=== PATIENT | male | born 1960 | race Caucasian/White ===

== ENCOUNTER 2017-01-25 12:12 | Inpatient (IN) ==
[2017-01-25] MEDS ORDERED: Ondansetron 4 MG/2 ML VIAL IVP PRN (16:45)
[2017-01-25] MEDS ORDERED: Naloxone 0.4 MG/ML INJ IVP PRN (16:49)
[2017-01-25] MEDS ORDERED: *HR* HYDROmorphone (PF) 1 MG/ML SYRINGE IVP PRN (16:51)
--- NOTE | 2017-01-25 17:39 | Internal Med History&Physical ---
Date of Encounter: 01/25/17 Time of Encounter: 17:22 Assessment and Plan (1) Displaced fracture of right ulna Current visit: Yes Status: Acute 1 sustained fall from ladder. Right wrist reduced in outlying facilty ER and splinted. Orthopedics has been consulted-Dr. Cardenas 2 continue to elevate right arm 3 continue with Dilaudid for pain meds 4 Zofran for nausea Qualifiers: Encounter type: initial encounter Ulna location: styloid process Fracture type: closed Qualified Code(s): S52.611A - Displaced fracture of right ulna styloid process, initial encounter for closed fracture (2) Fracture of right distal radius Current visit: Yes Status: Acute 1 patient sustained a fall from ladder sustaining wrist trauma x-ray revealed comminuted fracture involving the distal radius. Arm is splinted and orthopedics has been consultation 2 continue with pain medication as well as Zofran 3 continue to elevate arm Qualifiers: Encounter type: initial encounter Fracture type: closed Fracture morphology: unspecified fracture morphology Qualified Code(s): S52.501A - Unspecified fracture of the lower end of right radius, initial encounter for closed fracture (3) Fracture of femoral neck, right, closed Current visit: Yes Status: Acute 1 patient sustained a fall from a ladder imaging revealed mildly comminuted fracture base of the femoral neck. Orthopedics has been consulted-Dr. Haney Patient is to be nothing by mouth after midnight for surgery in the a.m. Continue with Dilaudid for pain Zofran for nausea PT and OT consult Qualifiers: Encounter type: initial encounter Qualified Code(s): S72.001A - Fracture of unspecified part of neck of right femur, initial encounter for closed fracture (4) HTN (hypertension) Current visit: No Status: Chronic 1 presently is controlled. - will bring in meds list and once confirm we will resume home medications 2 low sodium diet Qualifiers: Hypertension type: essential hypertension Qualified Code(s): I10 - Essential (primary) hypertension (5) GERD (gastroesophageal reflux disease) Current visit: Yes Status: Chronic We will continue with Protonix Qualifiers: Esophagitis presence: without esophagitis Qualified Code(s): K21.9 - Gastro -esophageal reflux disease without esophagitis (6) DVT prophylaxis Current visit: Yes Status: Acute SCDs-Lovenox (7) CKD (chronic kidney disease) Current visit: Yes Status: Acute 1 unsure baseline creatinine presently is 1.13. We will continue to monitor 2 we will avoid nephrotoxins 3 monitor intake and output 4 we will give IV fluids overnight Qualifiers: Chronic kidney disease stage: unspecified stage Qualified Code(s): N18.9 - Chronic kidney disease, unspecified Internal Medicine - H&P: HPI Chief complaint: R arm /hip pain Admitted From: Hospital to Hospital Transfer Plans for Post Hospital Care: Home History of present illness: Mr. Voss is a 56 year old male with past history of hypertension GERD CK D hyperlipidemia R CEA. According to the patient he was at work today he was up a ladder approximately 7 rungs and began to fall. He attempted to break his fall with his arm and landed onto his right arm and right hip. He denies striking his head or lose any loss of consciousness. He denies any back or neck pain. He presented to an outlying facility [facility]. x-rays did reveal a comminuted fracture involving distal radius and displaced fracture of the ulnar styloid process. As well as mildly comminuted fracture of the right femoral neck and the greater trochanter. Right wrist was reduced in the emergency room. ER physician did speak with Dr. Haney who will see patient on consult. Patient has been transferred to [facility] for further treatment and managment . Upon arrival patient is hemodynamically stable. Dr. Haney did see patient at bedside. He will have surgery in AM NPO after midnight. Asad patient's pain is controlled. He is nauseated and is vomiting. Right arm is splinted and elevated Refills are brisk history. Her warm. Right lower extremity . Warm brisk capillary refill, palpable pulse. patient has no cardiac hx - he did have a recent stess test in Mar 2016 he achieved 88% of his age predicted heart rate and ran for approx 11 min without CP or ischemic changes on EKG. However his present his current EKG shows deep T wave inversion in precordial leads. This is more evident than previous EKG. He denies any CP at this time. I reviewed EKG with Dr Busch- with the changes in the EKG and the patient's hx of carotid artery disease - we will consult cardiology for preoperative clearance. We will obtain echo and intiate ASA and statin Past Med Surg Social Fam HX - Past Medical History Medical history: hypertension Psychiatric history: no psych history - Past Surgical History Surgical History: carotid endarterectomy - Social History Smoking Status: Former smoker Smokeless Tobacco Status: No Alcohol use: occasionally Drug use: marijuana - Family History Father Living Status: Age at : 67 Cause of : [place] Mother Living Status: Still Living Hx Family Cardiac Disorders: Yes ( HTN heart disease ) Internal Medicine - H&P: Meds Unable To Obtain [Unable to Obtain] 01/25/17 [History] 3 Allergy/AdvReac Type Severity Reaction Status Date / Time morphine Allergy Unknown Gastrointestinal Verified 01/25/17 16:15 Upset All Systems PM: A 10-system review of systems was performed and is negative for pertinent findings except as documented above in the HPI. - Constitutional Constitutional: no chills, no fever(s), no night sweats - EENT Eyes: no change in vision, no discharge, no pain, no photophobia Ears: no ear discharge, no ear pain, no tinnitus Nose, mouth and throat: no dysphagia, no nasal discharge, no neck pain, no sore throat - Cardiovascular Cardiovascular ROS IM: no chest pain, no diaphoresis, no dyspnea, no lightheadedness, no palpitations, no syncope - Respiratory Respiratory: no cough, no dyspnea, no wheezing, no excessive phlegm production - Gastrointestinal Gastrointestinal: no abdominal pain, no diarrhea, no hematemesis, no hematochezia, no melena, no nausea, no vomiting - Musculoskeletal Musculoskeletal ROS IM: no numbness, no tingling - Integumentary Integumentary IM: no rash, no unusual bruising - Neurological Neurological ROS: no confusion, no convulsions, no focal weakness, no numbness, no tingling, no tremor(s) - Hematologic/Lymphatic Hematologic/Lymphatic: no easy bruising - Constitutional Vitals: Temp Pulse Resp BP Pulse Ox 97.7 F 53 16 134/78 97 01/25/17 15:59 01/25/17 15:59 01/25/17 15:59 01/25/17 15:59 01/25/17 15:59 General appearance: Present: A&O X 3 - Head Head exam: Present: atraumatic, normocephalic - Eye Eye exam: Present: PERRL, conjuntiva pink, sclera anicteric Pupils: Present: PERRL - Neck Neck exam general surgery: Present: supple, trachea midline. Absent: lymphadenopathy - Respiratory Respiratory exam: Present: CTAB. Absent: accessory muscle use, rales, rhonchi, wheezes - Cardiovascular Cardiovascular exam: Present: RRR, +S1, +S2. Absent: diastolic murmur, gallop, rubs, systolic murmur - GI/Abdominal GI/Abdominal exam: Present: normal bowel sounds, soft, no peritoneal signs. Absent: distended, tenderness - Extremities Exam Extremities exam: Present: warm, radial pulses palpable and symmetrical. Absent : calf tenderness, cyanotic, pedal edema - Neurological Exam Neurological exam: Present: CN II-XII intact, oriented X3, no focal deficits. Absent: pronater drift, facial droop, speech deficit - Skin Skin exam: Present: dry, intact
--- NOTE | 2017-01-25 17:40 | Orthopedic Consult Note ---
Date of Encounter: 01/25/17 Time of Encounter: 17:36 Assessment and Plan (1) Fracture of femoral neck, right, closed Current Visit: Yes Status: Acute I did discuss the diagnosis in detail with the patient. He has a right significantly displaced distal radius fracture. He also has a right basicervical femoral neck fracture. Treatment options were discussed and the recommendation was for reduction and internal fixation of both fractures. Regarding the wrist to goal is to realign and restore function to the right upper extremity. The goal of the hip fracture is to realign and stabilize the hip. The risks discussed included but were not limited to stiffness, bleeding, infection, blood clots, damage to neurovascular structures, tendons, ligaments, and bone. Also discussed was the risk of continued symptoms and possible need for further procedures. I did discuss the anesthesia risks including stroke, heart attack, and . We discussed the reasonable, foreseeable postoperative course with the patient. He did wish to proceed and consent will be obtained. Qualifiers: Encounter type: initial encounter Qualified Code(s): S72.001A - Fracture of unspecified part of neck of right femur, initial encounter for closed fracture History of Present Illness HPI: Mr. 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 He denies any significant medical comorbidity though he says he has had a carotid endarterectomy in the past. He was transferred to our [facility] after a fall from a foot ladder landing on his right upper extremity. At the transferring [facility] he was found to have a comminuted distal radius fracture and ulnar styloid avulsion as well as a right basicervical femoral neck fracture. The patient complains of isolated pain to these 2 regions. He denies any headache, neck pain, chest pain, abdominal pain, left upper extremity pain, and left lower extremity pain. This pain is well controlled with rest and a splint to the right forearm. No other associated signs or symptoms or modifying factors. Past Med Surg Social Fam HX - Past Medical History Medical history: hypertension Psychiatric history: no psych history - Past Surgical History Surgical History: carotid endarterectomy - Social History Smoking Status: Former smoker Smokeless Tobacco Status: No Alcohol use: occasionally Drug use: marijuana - Family History Father Living Status: Age at : 67 Cause of : [place] Mother Living Status: Still Living Hx Family Cardiac Disorders: Yes ( HTN heart disease ) Medications and Allergies 3 Allergy/AdvReac Type Severity Reaction Status Date / Time morphine Allergy Unknown Gastrointestinal Verified 01/25/17 16:15 Upset All Systems Reviewed: Constitutional and musculoskeletal systems were reviewed and are negative unless otherwise stated in history of present illness. Physical Exam - Constitutional Vitals: Temp Pulse Resp BP Pulse Ox 97.7 F 53 16 134/78 97 01/25/17 15:59 01/25/17 15:59 01/25/17 15:59 01/25/17 15:59 01/25/17 15:59 Constitutional -Vitals reviewed -The patient is well developed and well nourished. -Mood is pleasant. -The patient is well groomed. Psychiatric -The patient is fully alert and oriented x 3. Respiratory: -Respiratory effort normal Abdomen: -Soft abdomen -Non tender -Non distended: Left upper extremity: -No deformities. The overlying skin is intact. No obvious signs of acute trauma. -No tenderness to palpation throughout. -No significant pain with passive motion of the shoulder, elbow, wrist, and fingers within the limits of the bed. -Able to make an "OK" sign, cross the index and long fingers, and extend the thumb. -Sensation grossly intact to light touch throughout the median, radial, and ulnar distributions. -Radial pulse is present; Fingers have good capillary refill. Right upper extremity: -Splint is taken down and the skin and the soft tissue envelope are evaluated. -Minimal swelling to the forearm with radial deviation of the hand. Moderate hand swelling. No tenting of the skin ulnarly -No skin lesions or open fractures -Compartments are soft and compressible -Diffuse tenderness about the wrist. No tenderness proximally about the elbow or shoulder. -I can gently range the shoulder and elbow without discomfort. I did not range the wrist due to his known injury. -He can grossly flex and extend the digits with limitation due to pain and swelling. -The fingertips are all grossly sensate and well-perfused, and the radial artery pulse is 2+. Left lower extremity: -No deformities. The overlying skin is intact. No obvious signs of acute trauma. -No tenderness to palpation throughout. -No pain with passive motion of the hip, knee, ankle, and toes within the limits of the bed. -No pain with axial loading of the thigh. -Able to dorsiflex and plantarflex the ankle and toes. -Sensation is grossly intact to light touch throughout the sural, saphenous, superficial peroneal, and deep peroneal distributions. -Toes have good capillary refill. Right lower extremity: -The extremity is shortened and externally rotated. The overlying skin is intact. -There is tenderness in the groin region as well as the proximal lateral thigh. -I did not range the hip due to the known fracture. -No tenderness along the distal thigh, leg, ankle, foot, or toes. -Able to dorsiflex and plantarflex the ankle and toes. -Sensation is grossly intact to light touch throughout the sural, saphenous, superficial peroneal, and deep peroneal distributions. -Toes have good capillary refill. Diagnostic Imaging: I did personally review and interpret x-rays of the right hip as well as wrist which demonstrate a right basicervical femoral neck fracture and a significantly comminuted and shortened right radius fracture with ulnar styloid avulsion. Results - Labs Labs: All other labs normal. Consult Discharge Plan - Plan Referrals: Dalton Cheng CNP [Primary Care Provider] -
[2017-01-25] MEDS: 0.9 % Sodium Chloride 1,000 ML IVC SCH (17:51)
[2017-01-25] MEDS: Pantoprazole 40 MG VIAL IVP SCH (17:51)
[2017-01-25] MEDS: Acetaminophen 325 MG TABLET PO PRN (20:34)
[2017-01-25] MEDS ORDERED: Aspirin 325 MG TABLET PO ONE (23:29)
--- NOTE | 2017-01-25 23:31 | Event Note ---
Date of Encounter: 01/25/17 Time of Encounter: 23:26 Patient seen and examined with nurse practitioner. Patients with history of carotid artery disease status post carotid endarterectomy but no known history of coronary heart disease presents today after a mechanical fall from a ladder sustaining a hip fracture. Patients is due to have surgery tomorrow. Although patient had recent stress test in March 2016 where he achieved 88% of his age predicted heartrate and ran for approximately 11 minutes without limiting chest pain or ischemic EKG changes, however his current EKG shows deep T wave inversions in precordial leads. This is more pronounced than his prior EKG. Patient has good functional capacity denies any exertional chest pain. However because of these EKG changes and the history of carotid artery disease which is a coronary artery disease equivalent, I would ask cardiology service for preoperative clearance. Will check an echocardiogram. Start aspirin. Heartrate is in the 50s no room for beta blockers.
[2017-01-26 00:42] LABS: Basophils % 0.2 %; Eosinophils % 0.1 %; Hematocrit 39.6 % (37.5-50.1); Hemoglobin 13.9 g/dL (12.9-16.9); Immature Granulocytes % 0.4 % (0-4); Lymphocytes # 1.1 K/mcL (0.6-4.6); Lymphocytes % 7.9 %; Mean Corpuscular HGB Conc 35.1 g/dL (31.6-35.5); Mean Corpuscular Hemoglobin 31.9 pg (28.0-33.3); Mean Corpuscular Volume 90.8 fL (83.0-100.0); Mean Platelet Volume 11.3 fL (9.4-12.4); Monocytes # 1.3 K/mcL (0.0-1.3); Monocytes % 8.9 %; Neutrophils # 11.5 K/mcL (1.6-8.9); Platelet Count 228 K/mcL (140-400); Red Blood Count 4.36 M/mcL (4.19-5.50); Red Cell Distribution Width 13.6 % (11.5-14.5); Segmented Neutrophils % 82.5 %
[2017-01-26 00:55] LABS: BUN/Creatinine Ratio 10 (6-26); Blood Urea Nitrogen 9 mg/dL (8-26); Calcium 9.2 mg/dL (8.6-10.8); Carbon Dioxide 28 mEq/L (19-29); Chloride 103 mEq/L (98-109); Glucose 120 mg/dL (70-99); Magnesium 2.3 mg/dL (1.6-2.6); Osmolality,Calculated 290 (280-300); Sodium 140 mEq/L (136-145); eGFR For African Americans > 60 (> 60); eGFR For Non-African Americans > 60 (> 60)
[2017-01-26 00:57] LABS: Chol/HDL Ratio 4.3 (0-4.9)
[2017-01-26] MEDS: Acetaminophen 325 MG TABLET PO PRN ×3 (04:27→17:13)
[2017-01-26] MEDS: 0.9 % Sodium Chloride 1,000 ML IVC SCH (06:30)
--- NOTE | 2017-01-26 07:47 | Orthopedics Progress Note ---
Date of Encounter: 01/26/17 Time of Encounter: 07:44 - Assessment and Plan (1) Fracture of femoral neck, right, closed Current Visit: Yes Status: Acute Qualifiers: Encounter type: initial encounter Qualified Code(s): S72.001A - Fracture of unspecified part of neck of right femur, initial encounter for closed fracture Subjective Interval history: S: The patient is resting comfortably. Pain is well-controlled to the right hip and the right wrist. O: Afebrile and vital signs are stable. Right wrist in splint. Digits distal to the splint are freely mobile, sensate, and well perfused. Right lower extremity is shortened and externally rotated. Toes are freely mobile, sensory, and well-perfused A: Right comminuted distal radius fracture and right hip fracture P: The recommendation is for open reduction and internal fixation of the wrist and reduction and fixation of the right hip. Notes reviewed from yesterday and he will require cardiac clearance. Echo was placed STAT Nothing by mouth Plan for surgery later today. Objective Vital signs: Vital Signs Temp Pulse Resp BP Pulse Ox 01/26/17 06:43 98.7 F 78 16 136/84 95 01/26/17 04:11 98.5 F 71 16 132/83 94 01/25/17 23:19 98.1 F 70 17 129/86 96 01/25/17 21:12 98.3 F 58 15 119/81 98 01/25/17 15:59 97.7 F 53 16 134/78 97 01/25/17 15:39 97.7 F 53 16 134/78 97 Intake and Output 01/25/17 01/25/17 01/26/17 15:59 23:59 07:59 Intake Total 900 / 900 1000 / 1000 Output Total 0 / 0 1200 / 1200 Balance 900 / 900 -200 / -200 Intake: IV Fluids 1000 / 1000 0.9 % Sodium Chloride 1,000 ML 1000 / 1000 @ 100 mls/hr IVC .Q10H [facility] Rx#: [id number] Oral 900 / 900 Output: Urine 0 / 0 1200 / 1200 Other: Weight 102 kg - Labs CBC & BMP: 01/26/17 00:23 01/26/17 00:23 Labs: Abnormal lab results WBC 14.0 K/mcL (4.3-11.1) H 01/26/17 00:23 Neutrophils # 11.5 K/mcL (1.6-8.9) H 01/26/17 00:23 Potassium 3.0 mEq/L (3.5-4.5) L 01/26/17 00:23 Glucose 120 mg/dL (70-99) H 01/26/17 00:23 LDL Cholesterol, Calc 122 mg/dL (0-99) H 01/26/17 00:23 - VTE Documentation of Mechanical Device: Intermittent pneumatic compression device Consult Discharge Plan - Plan Referrals: Dalton Cheng COMPUTER TECH [Primary Care Provider] -
[2017-01-26] MEDS: Pantoprazole 40 MG VIAL IVP SCH (07:48)
--- NOTE | 2017-01-26 10:06 | Cardiology Consult Note ---
Date of Encounter: 01/26/17 Time of Encounter: 10:03 Assessment and Plan (1) Pre-operative cardiovascular examination Current Visit: Yes Status: Acute Pre-operative cardiac risk stratification for open reduction and internal fixation of the wrist and reduction and fixation of the right hip. Injuries sustained s/p mechanical fall. Prior to injury, pt reports being able to achieve 4 METS without any cardiac symptoms (dyspnea or chest pain). Abnormal EKG--inferolateral T wave inversions, but EKG is unchanged from when he had his stress test in March 2016. Risk factors for CAD include HTN and family hx, carotid disease s/p R CEA 4 years ago. Nuclear exercise stress test 03/2016 pt demonstrated excellent exercise capacity. Gated EF 69%. Perfusion imaging negative for ischemia or infarct. No murmur noted on exam. No echo warranted since EF preserved on stress in March. Given negative ischemic evaluation in the past year and pt being able to achieve 4 METS without symptoms, pt is low risk from cardiac perspective for planned orthopedic surgery. No further cardiac testing warranted. Cardiology signing off. Reconsult PRN. (2) Hypokalemia Current Visit: Yes Status: Acute K 3.0 Will replace. (3) HTN (hypertension) Current Visit: Yes Status: Chronic Controlled currently. Recommend resuming home antihypertensive. Qualifiers: Hypertension type: essential hypertension Qualified Code(s): I10 - Essential (primary) hypertension Discussion w patient/family: The assessment and plan as outlined above was discussed with the patient and/or family members who expressed understanding and agreement. All questions were answered. Thank you for involving us in the care of your patient. Please call with any questions. I will discuss all the above with Dr. Couch and make changes as necessary. History of Present Illness Consult date: 01/26/17 Requesting physician: Gilberto Cardenas Consult reason: Preop cardiac risk stratification Chief complaint: right wrist and hip pain History of present illness: Mr. Voss is a 56 year old male with past history of HTN, GERD, CKD, HTN, carotid disease s/p right CEA in 2012. Pt presented in transfer after falling off a ladder at work. He attempted break his fall with his arm and landed onto his right arm and right hip. He denies striking his head or lose any loss of consciousness. He denies any back or neck pain. He initially presented to [facility][1], found to have distal radius fx and displaced fracture of the ulnar styloid process, fracture of the right femoral neck and the greater trochanter. He was transferred to [facility] for further management. Planned surgery today for open reduction and internal fixation of the wrist and reduction and fixation of the right hip. Pt denies any chest pain or dyspnea at rest or exertion. He has no prior cardiac hx. He had an exercise nuclear stress test 2016--perfusion imaging negative for ischemia or infarct. Gated EF 69%. Exercise capacity excellent. It was noted he had baseline EKG abnormalities on stress, which he also has on current EKG. Past Med Surg Social Fam HX - Past Medical History Medical history: hyperlipidemia, hypertension Psychiatric history: no psych history - Past Surgical History Surgical History: carotid endarterectomy - Social History Smoking Status: Former smoker Smokeless Tobacco Status: No Alcohol use: occasionally Drug use: marijuana - Family History Father Living Status: Age at : 67 Cause of : [place] Mother Living Status: Still Living Hx Family Cardiac Disorders: Yes ( HTN heart disease ) Medications and Allergies Aspirin [Lo-Dose Aspirin EC] 81 mg PO DAILY 01/26/17 [History] Enalapril/Hydrochlorothiazide [Vaseretic 10-25 mg Tablet] 1 tab PO DAILY [History] 3 Allergy/AdvReac Type Severity Reaction Status Date / Time morphine Allergy Unknown Gastrointestinal Verified 01/25/17 16:15 Upset All Systems Review: A 10-system review of systems was performed and is negative for pertinent findings except as documented above in the HPI. - Musculoskeletal Musculoskeletal: other (right hip and wrist pain) Physical Examination Vital Signs, Last 4 Hours Temp Pulse Resp BP Pulse Ox 01/26/17 06:43 98.7 F 78 16 136/84 95 Vital Signs Temp Pulse Resp BP Pulse Ox 01/26/17 06:43 98.7 F 78 16 136/84 95 01/26/17 04:11 98.5 F 71 16 132/83 94 01/25/17 23:19 98.1 F 70 17 129/86 96 01/25/17 21:12 98.3 F 58 15 119/81 98 01/25/17 15:59 97.7 F 53 16 134/78 97 01/25/17 15:39 97.7 F 53 16 134/78 97 Intake and Output 1101/26/17 01/26/17 23:59 07:59 15:59 Intake Total 900 / 900 1000 / 1000 Output Total 0 / 0 1200 / 1200 Balance 900 / 900 -200 / -200 Intake: IV Fluids 1000 / 1000 0.9 % Sodium Chloride 1,000 ML 1000 / 1000 @ 100 mls/hr IVC .Q10H [facility] Rx#: [id number] Oral 900 / 900 Output: Urine 0 / 0 1200 / 1200 Other: Weight 102 kg General: Conversant, No Apparent Distress HEENT: Atraumatic, Normocephaly, Mucus Membranes Moist Neck: No JVD, Normal carotid pulses Cardiac: Reg Rate and Rhythm, Normal S1 and S2, No Murmur Lungs: Normal Breath Sounds, No Wheeze, Rales, Rhonchi Neuro: Alert and responsive, No focal deficits noted Abdomen: Soft, Non-Tender Skin: No rashes noted on visualized skin Musculoskeletal: No Chest Wall Tenderness Extremities: No Clubbing, No Cyanosis, No Edema, Normal Pulses Results 01/26/17 00:23 01/26/17 00:23 Lab Results 01/26/17 01/26/17 00:23 00:23 WBC 14.0 H Hgb 13.9 Hct 39.6 Plt Count 228 Sodium 140 Potassium 3.0 L Chloride 103 Carbon Dioxide 28 BUN 9 Creatinine 0.93 Glucose 120 H Calcium 9.2 Magnesium 2.3 Short CBC 01/26/17 Range/Units 00:23 WBC 14.0 H (4.3-11.1) K/mcL Hgb 13.9 (12.9-16.9) g/dL Hct 39.6 (37.5-50.1) % Plt Count 228 (140-400) K/mcL Neutrophils # 11.5 H (1.6-8.9) K/mcL BMP 01/26/17 Range/Units 00:23 Sodium 140 (136-145) mEq/L Potassium 3.0 L (3.5-4.5) mEq/L Chloride 103 (98-109) mEq/L Carbon Dioxide 28 (19-29) mEq/L BUN 9 (8-26) mg/dL Creatinine 0.93 (0.72-1.25) mg/dL Glucose 120 H (70-99) mg/dL Calcium 9.2 (8.6-10.8) mg/dL Active Medications Acetaminophen (Tylenol) 650 mg PO Q6HR PRN PRN Reason: Mild Pain (1-3) Stop: 07/27/17 16:52 Last Admin: 01/26/17 04:27 Dose: 650 mg Hydromorphone HCl (Dilaudid) 0.5 mg IVP Q4HR PRN PRN Reason: Severe Pain (7-10) Stop: 07/27/17 16:52 Last Admin: 01/25/17 18:29 Dose: 0.5 mg Sodium Chloride (0.9 % Sodium Chloride) 1,000 mls @ 100 mls/hr IVC .Q10H [facility]IN Stop: 01/26/17 17:01 Last Admin: 01/26/17 06:30 Dose: 100 mls/hr Naloxone HCl (Narcan) 0.4 mg IVP Q2MIN PRN PRN Reason: Opioid Reversal Stop: 07/27/17 16:50 Ondansetron HCl (Zofran) 4 mg IVP Q6HR PRN; Protocol PRN Reason: Nausea And Vomiting Stop: 07/27/17 16:46 Last Admin: 01/25/17 17:51 Dose: 4 mg Pantoprazole Sodium (Protonix) 40 mg IVP DAILY [facility]IN Stop: 07/27/17 16:46 Last Admin: 01/26/17 07:48 Dose: 40 mg Simvastatin (Zocor) 40 mg PO HS [facility] Stop: 07/27/17 23:46 Last Admin: 01/26/17 00:18 Dose: 40 mg - Imaging and Cardiology Stress Test: report reviewed - EKG Interpretation EKG results cardiology: personally reviewed (SR, LVH, inferolateral T wave inversions) Consult Discharge Plan - Plan Referrals: Dalton Cheng, [employer]STATE ACCOUNT EXECUTIVE [Primary Care Provider] -
--- NOTE | 2017-01-26 14:52 | Internal Med Progress Note ---
Date of Encounter: 01/26/17 Time of Encounter: 10:10 - Assessment and plan (1) Fracture of femoral neck, right, closed Current Visit: Yes Status: Acute Assessment and plan: Acute right femoral neck fracture - secondary to a mechanical fall Orthopedics consult - scheduled for surgery today Continue IV Dilaudid PRN, IV fluids, DVT prophylaxis Cardiac telemetry, labs in a.m., monitor closely Qualifiers: Encounter type: initial encounter Qualified Code(s): S72.001A - Fracture of unspecified part of neck of right femur, initial encounter for closed fracture (2) Displaced fracture of right ulna Current Visit: Yes Status: Acute Assessment and plan: Acute right displaced fracture of ulna - secondary to mechanical fall Fracture has been reduced and splinted in the ED Orthopedics consult - surgery today Qualifiers: Encounter type: initial encounter Ulna location: styloid process Fracture type: closed Qualified Code(s): S52.611A - Displaced fracture of right ulna styloid process, initial encounter for closed fracture (3) Fracture of right distal radius Current Visit: Yes Status: Acute Assessment and plan: Secondary to mechanical fall - status post reduction and splinting Orthopedics consult - surgery today Qualifiers: Encounter type: initial encounter Fracture type: closed Fracture morphology: unspecified fracture morphology Qualified Code(s): S52.501A - Unspecified fracture of the lower end of right radius, initial encounter for closed fracture (4) HTN (hypertension) Current Visit: Yes Status: Chronic Assessment and plan: Essential hypertension, controlled, monitor Continue home dose of Lisinopril/HCTZ Qualifiers: Hypertension type: essential hypertension Qualified Code(s): I10 - Essential (primary) hypertension (5) GERD (gastroesophageal reflux disease) Current Visit: Yes Status: Chronic Assessment and plan: Continue Protonix Qualifiers: Esophagitis presence: without esophagitis Qualified Code(s): K21.9 - Gastro -esophageal reflux disease without esophagitis (6) DVT prophylaxis Current Visit: Yes Status: Acute Assessment and plan: Continue heparin subcutaneous - Time Spent With Patient 25 - 35 minutes - Subjective Interval history: Examined this morning. Patient is awake and alert. Not in any distress. Denies chest pain or shortness of breath. No fever. Hemodynamically stable. Patient complains of pain in right lower extremity. Worse with movement. Alleviated with pain medication. No other acute events or complaints. Admitted for right femoral neck fracture. Scheduled for surgery today. Patient also has a displaced fracture of the right ulna and right radius, which was reduced in the ER and splinted. - Constitutional Vitals: Temp Pulse Resp BP Pulse Ox 98 F 79 16 153/96 95 01/26/17 10:18 01/26/17 10:18 01/26/17 10:18 01/26/17 10:18 01/26/17 10:18 General appearance: Present: cooperative, A&O X 3, pleasant, no acute distress, answers questions appropriately - Head Head exam: Present: atraumatic - Eye Eye exam: Present: EOMI - ENT ENT exam: Present: mucous membranes moist - Respiratory Respiratory exam: Present: CTAB. Absent: rales, rhonchi, wheezes, tachypnea - Cardiovascular Cardiovascular exam: Present: RRR, +S1, +S2 - GI/Abdominal GI/Abdominal exam: Present: soft. Absent: distended, firm, guarding, tenderness - Extremities Exam Extremities exam: Present: radial pulses palpable and symmetrical. Absent: calf tenderness, cyanotic, pedal edema Additional comments: Right arm and forearm splint. Mild edema over right lower extremity. Neurovascularly intact. - Neurological Exam Neurological exam: Present: alert, CN II-XII intact, oriented X3, no focal deficits. Absent: facial droop, speech deficit Internal Medicine: Result - Labs CBC & Chem 7: 01/26/17 00:23 01/26/17 00:23 Labs: Short CBC 01/26/17 Range/Units 00:23 WBC 14.0 H (4.3-11.1) K/mcL Hgb 13.9 (12.9-16.9) g/dL Hct 39.6 (37.5-50.1) % Plt Count 228 (140-400) K/mcL Neutrophils # 11.5 H (1.6-8.9) K/mcL BMP 01/26/17 00:23 Sodium 140 Potassium 3.0 L Chloride 103 Carbon Dioxide 28 BUN 9 Creatinine 0.93 Glucose 120 H Calcium 9.2 - VTE Documentation of Mechanical Device: Intermittent pneumatic compression device Consult Discharge Plan - Plan Referrals: Dalton Cheng CNP [Primary Care Provider] -
[2017-01-26 15:12] LABS: INR 1.2; Prothrombin Time 13.3 Seconds (9.4-12.1)
[2017-01-26] MEDS ORDERED: *HR* Heparin 5,000 UNIT/ML VIAL SQ SCH (18:00)
--- NOTE | 2017-01-26 18:46 | Electrocardiograph Report ---
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
--- NOTE | 2017-01-26 22:57 | Anesthesia Evaluation PreOp ---
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: Denies Any Significant HX Other Medical History: Renal (CRD), GERD Anesthesia History: No Prior Anesthetic Complications, Past Anesthesia (CEA) Alcohol Use: occasionally Drug use: marijuana Medications and Allergies Aspirin [Lo-Dose Aspirin EC] 81 mg PO DAILY 01/26/17 [History] Enalapril/Hydrochlorothiazide [Vaseretic 10-25 mg Tablet] 1 tab PO DAILY [History] 3 Allergy/AdvReac Type Severity Reaction Status Date / Time morphine Allergy Unknown Gastrointestinal Verified 01/25/17 16:15 Upset - Meds/Allergy Pre-op Review Medications Reviewed: Yes Allergies Reviewed: Yes Beta Blockers on Current Med List: No Anesthesia Results - Labs 01/26/17 00:23 01/26/17 00:23 Echocardiogram Name: Juanito Voss Date of Study: 01/26/2017 [id number]^ProVation^FT^PDF EV/EV echocardiogram Impressions: LVEF 55-60%. Normal LV chamber size, wall thickness and function. Mild left ventricular diastolic dysfunction. Normal right ventricular structure and function. Unable to estimate RVSP due to lack of TR jet. No significant valvular dysfunction. Stress Date of Study: 03/29/2016 Impression: Perfusion imaging was negative for ischemia or infarct. Exercise ECG was non-diagnostic for ischemia due to baseline ST-T abnormalities. Exercise capacity was excellent. Normal hemodynamic response. Patient had no chest pain with stress. No arrhythmias noted with stress. Gated EF = 69%. Nuclear Summary: SPECT myocardial perfusion imaging using Tc99m Sestamibi given intravenously was performed at rest and following cardiac stress testing. The resting images were obtained following initial dose of 9.8 mCi. Following stress an additional dose of 30.0 mCi was given at peak exercise or 30 seconds post regadenoson infusion. Medication Given: Time Medication Dose Units Route Findings: Stress Note * Resting ECG demonstrated normal sinus rhythm with diffuse ST abnormalities and TWI. * Exercise ECG is non diagnostic for ischemia due to non-specific ST and T wave changes. * No arrhythmias were noted during stress. * Patient had no chest pain during stress. * The exercise capacity was excellent. Hemodynamic responses * Normal hemodynamic responses to exercise. Study Quality * Study quality is good. Gated EF % * Gated EF = 69%. Left Ventricle * The left ventricle is not dilated. TID * No evidence of transient ischemic dilatation. Lung Uptake * There is no evidence of increase lung uptake. NORMALS * Normal wall motion. * Normal segmental perfusion in stress. * Normal Segmental Perfusion in rest. Updated by Corinna Paulson on 03/29/2016 2:16:33 PM electronically signed on 03/29/2016 2:17:46 PM with status of Final - Imaging EKG: image reviewed (SINUS RHYTHM LEFT VENTRICULAR HYPERTROPHY ANTERIOR ISCHEMIA ) Anesthesia Exam O2 Sat O2 Sat by Pulse Oximetry 95 O2 Sat by Pulse Oximetry 95 O2 Sat by Pulse Oximetry 95 O2 Sat by Pulse Oximetry 94 O2 Sat by Pulse Oximetry 96 Vital Signs Temp Pulse Resp BP Pulse Ox 97.7 F 53 16 134/78 97 01/25/17 15:39 01/25/17 15:39 01/25/17 15:39 01/25/17 15:39 01/25/17 15:39 Vital Signs/O2 Sat, Most Current Temp Pulse Resp BP Pulse Ox 98.3 F 70 16 114/76 95 01/26/17 19:27 01/26/17 19:27 01/26/17 19:27 01/26/17 19:27 01/26/17 19:27 Height: 5'6'' Weight: 224# NPO (# of Hours): > 8 bhrs Pain Scale: 0 Pain Scale Used: Numeric (1 - 10) - HEENT Pupil (Motor): Pupils equal, EOMI Mallampati: II Teeth: Poor dentition Oral Opening: Greater than 3 - 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
[2017-01-26] MEDS ORDERED: Ondansetron 4 MG/2 ML VIAL IVP ONE (23:02)
[2017-01-26] MEDS ORDERED: *HR* Metoprolol 5 MG/5 ML VIAL IVP PRN (23:02)
[2017-01-26] MEDS ORDERED: *HR* Promethazine 25 MG/ML VIAL IVP PRN (23:02)
[2017-01-26] MEDS ORDERED: Albuterol 2.5 MG/3 ML NEBULIZER IH ONE (23:02)
[2017-01-26] MEDS ORDERED: *HR* HYDROmorphone (PF) 1 MG/ML SYRINGE IVP PRN (23:02)
[2017-01-26] MEDS ORDERED: *HR* Midazolam HCl 2 MG/2 ML VIAL ONE (23:10)
[2017-01-26] MEDS ORDERED: *HR* Propofol 200 MG/20 ML VIAL IVP ONE (23:10)
[2017-01-26] MEDS ORDERED: *HR* FentaNYL (PF) 100 MCG/2 ML VIAL ONE (23:10)
[2017-01-26] MEDS ORDERED: Lidocaine -MPF 2% 2 ML VIAL ONE (23:14)
[2017-01-26] MEDS ORDERED: *HR* Rocuronium Bromide 50 MG/5 ML VIAL ONE (23:14)
[2017-01-26] MEDS ORDERED: Dexamethasone 4 MG/ML VIAL ONE (23:14)
[2017-01-26] MEDS ORDERED: *HR* Succinylcholine 200 MG/10 ML VIAL IVP ONE (23:14)
[2017-01-26] MEDS ORDERED: Ondansetron 4 MG/2 ML VIAL ONE (23:14)
[2017-01-26] MEDS ORDERED: Ringers Solution, Lactated 1,000 ML ONE (23:44)
[2017-01-27] MEDS ORDERED: Bupivacaine/EPI 1:200k 0.25%PF 30 ML VIAL ONE (00:02)
[2017-01-27] MEDS ORDERED: *HR* FentaNYL (PF) 100 MCG/2 ML VIAL ONE (01:49)
[2017-01-27] MEDS ORDERED: *HR* HYDROmorphone 2 MG/ML SYRINGE ONE (03:13)
[2017-01-27] MEDS ORDERED: *HR* Rocuronium Bromide 50 MG/5 ML VIAL ONE (03:23)
[2017-01-27] MEDS ORDERED: Neostigmine Methylsulfate 3 MG/3 ML SYRINGE ONE (03:27)
--- NOTE | 2017-01-27 04:02 | Orthopedic Operative Note ---
Date of procedure: 01/27/17 Procedure: OPERATIVE REPORT DATE OF PROCEDURE: 01/27/2017 SURGEON: Marc Haney MD SLAB OFF MILL TENDER(S): There are no assistants PREOPERATIVE DIAGNOSIS: Right comminuted intra-articular distal radius fracture and right basicervical femoral neck fracture POSTOPERATIVE DIAGNOSIS: Right comminuted intra-articular distal radius fracture and right basicervical femoral neck fracture PROCEDURE: Reduction and fixation of the right hip with medullary nailing and open reduction and internal fixation of the right distal radius fracture ANESTHESIA: General anesthesia PREOPERATIVE ANTIBIOTICS: 2 g of Ancef ESTIMATED BLOOD LOSS: 75 milliliters TOURNIQUET TIME: [] minutes at [] mmHg SPECIMENS: There are no specimens IMPLANTS: [place] gamma 3 hip nail measuring 10 mm x 170 mm x 125 degrees and skeletal dynamics volar locking distal radius plate. LOCAL INJECTION: 0.25% bupivacaine with 1:200,000 epinephrine PREOPERATIVE NOTE AND INDICATIONS: This patient is a 56-year-old male who fell off a ladder and sustained the above injuries. Treatment options were discussed and the recommendation was for the above-described procedures in order to realign and stabilize the extremities. The surgical plan was discussed with the patient. The risks, benefits, alternatives, and potential complications of this procedure were discussed with the patient including injury to veins, arteries, nerves, tendons, ligaments, and bone. Also discussed were the risks of infection, bleeding, pain, blood clots, the possible need for a blood transfusion, the possible need for further procedures, heart attack, stroke, and . Additional risks include malunion , nonunion, hardware failure or collapse or the need for hardware removal in the future. All of this was explained in simple terms, and the patient verbalized understanding and wished to proceed. Consent was given to proceed with surgery. PROCEDURE: The patient was seen in the preoperative holding area where the identify and the consent were confirmed. The right wrist and right hip was marked. Final questions were answered. The patient was brought back to the operating room. A huddle was performed with the patient and all vital surgical team members confirming patient identity, the correct procedure, and the correct operative site. General anesthesia was administered. The patient was placed on the traction table and the right lower extremity is placed in traction and internal rotation. X-rays confirmed good position. The right lower extremity was prepped and draped in the usual sterile fashion. A surgical time out was performed immediately preceding the incision with all personnel in the operating room to confirm patient identity, the correct operative site and extremity, correct radiographic studies, availability of appropriate surgical equipment, and agreement on the planned procedure. Small longitudinal incision was made proximal to the greater trochanter through the subcutaneous tissue and gluteal fascia. A pin was driven into the proximal femur and this opened with the curved awl. Reaming commenced starting with a 9 mm reamer and going up to 11.5 mm. The definitive nail was placed and a second incision was made and the guidepin placed in the femoral head. This was measured, drilled, tapped, and the definitive lag screw placed. A third incision was made and a distal locker was placed in static mode. I traced confirm good position. The wounds were copiously irrigated and the fascia closed with 0 Vicryl stitches. The skin was closed with 3-0 Vicryl stitches followed by kavon. A sterile dressing was applied and the patient was taken off the traction table and placed onto the standard OR table and the right upper extremity was reprepped and draped. A volar Ernie incision was made and dissection proceeded through the subcutaneous tissue and the FCR and volar contents of the forearm were reflected ulnarly and the radial artery was reflected radially. The pronator quadratus and the brachioradialis were taken down. There was a large radial volar fragment which was metaphyseal. There is a split between the scaphoid and lunate facet fragments. These were reduced with traction and the definitive plate was applied and fixed with a K wire proximally and 2 K wires distally. X-rays confirmed good reduction and cortical screws were placed proximally into the shaft followed by locking pegs distally. There was a small volar rim fragment which was reduced and held in place with the hook extension plate. Final x-ray showed excellent reduction of the fragments and passive motion of the wrist showed good stability. The wound was copiously irrigated and the incision closed with interrupted nylon stitches. A sterile dressing and sugar tong splint was applied. The instrument, sponge, and needle counts were correct after wound closure. POST OPERATIVE PLAN: Weight Bearing: Nonweightbearing to the right upper extremity. Weightbearing as tolerated to the bilateral lower extremities. DVT Prophylaxis: Aspirin Activity: Avoid aggressive activities with the right upper extremity. Wound Care: Keep the dressings clean, dry, and intact. Pain Control: Per the hospitalist Perioperative antibiotic prophylaxis: 2 doses of Ancef Social work for discharge planning Follow Up: 2 weeks
--- NOTE | 2017-01-27 04:07 | Orthopedics Progress Note ---
Date of Encounter: 01/27/17 Time of Encounter: 04:05 - Assessment and Plan (1) Fracture of femoral neck, right, closed Current Visit: Yes Status: Acute I did discuss the diagnosis in detail with the patient. He has a right significantly displaced distal radius fracture. He also has a right basicervical femoral neck fracture. Treatment options were discussed and the recommendation was for reduction and internal fixation of both fractures. Regarding the wrist to goal is to realign and restore function to the right upper extremity. The goal of the hip fracture is to realign and stabilize the hip. The risks discussed included but were not limited to stiffness, bleeding, infection, blood clots, damage to neurovascular structures, tendons, ligaments, and bone. Also discussed was the risk of continued symptoms and possible need for further procedures. I did discuss the anesthesia risks including stroke, heart attack, and . We discussed the reasonable, foreseeable postoperative course with the patient. He did wish to proceed and consent will be obtained. Qualifiers: Encounter type: initial encounter Qualified Code(s): S72.001A - Fracture of unspecified part of neck of right femur, initial encounter for closed fracture Subjective Interval history: S: The patient is resting comfortably. Pain is well-controlled to the right hip and the right wrist. O: Afebrile and vital signs are stable. Right wrist in splint. Digits distal to the splint are freely mobile, sensate, and well perfused. Right lower extremity is shortened and externally rotated. Toes are freely mobile, sensory, and well-perfused A: Right comminuted distal radius fracture and right hip fracture P: The recommendation is for open reduction and internal fixation of the wrist and reduction and fixation of the right hip. Notes reviewed from yesterday and he will require cardiac clearance. Echo was placed STAT Nothing by mouth Plan for surgery later today. Objective Vital signs: Vital Signs Temp Pulse Resp BP Pulse Ox 01/27/17 03:49 83 16 152/100 95 01/27/17 03:39 98.5 F 104 16 155/100 96 01/26/17 23:13 98.3 F 70 15 160/88 100 01/26/17 19:27 98.3 F 70 16 114/76 95 01/26/17 10:18 98 F 79 16 153/96 95 01/26/17 06:43 98.7 F 78 16 136/84 95 01/26/17 04:11 98.5 F 71 16 132/83 94 Intake and Output 01/26/17 01/26/17 01/27/17 15:59 23:59 07:59 Intake Total 0 / 0 Output Total 800 / 800 877 / 877 Balance -800 / -800 -877 / -877 Intake: Oral 0 / 0 Output: Urine 800 / 800 Estimated Blood Loss 77 / 77 Urine Amount (Catheter) 800 / 800 - Labs CBC & BMP: 01/26/17 00:23 01/26/17 00:23 Labs: Abnormal lab results WBC 14.0 K/mcL (4.3-11.1) H 01/26/17 00:23 Neutrophils # 11.5 K/mcL (1.6-8.9) H 01/26/17 00:23 PT 13.3 Seconds (9.4-12.1) H 01/26/17 14:57 Potassium 3.0 mEq/L (3.5-4.5) L 01/26/17 00:23 Glucose 120 mg/dL (70-99) H 01/26/17 00:23 LDL Cholesterol, Calc 122 mg/dL (0-99) H 01/26/17 00:23 - VTE Documentation of Mechanical Device: Graduated compression elastic hosiery Consult Discharge Plan - Plan Additional Instructions: [facility] DISCHARGE INSTRUCTIONS Dr. Haney PROCEDURE PERFORMED Reduction and fixation of right hip. Reduction and fixation of the right distal radius Incision care -Regarding the right upper extremity, do not take down your splint or dressings. -Daily dressing changes to the right hip with dry gauze and either paper tape or medipore tape. -Avoid soaking wound in water (no hot tubs, bathtubs, swimming pools). -May shower after 2 weeks from surgery date. Carefully wash incision with soap and water. Gently pat it dry. Don't rub the incision, or apply creams or lotions. Sit on a shower stool when showering to keep from falling. Weight bearing status -Nonweightbearing to the right upper extremity. -Weightbearing as tolerated to the bilateral lower extremities. Medications -Pain medication per the discharging medical doctor -Enteric coated aspirin 325 mg by mouth twice per day for 28 days from the date of the surgery. Other -Knee high PHUC hose 23 hours per day -Consult physical and occupational therapy for mobilization. -Up to chair with assistance at least twice per day. Follow-up with Dr. Haney at the office 2 weeks from the surgery date for a post operative evaluation. Call the office at [phone] to schedule appointment. Referrals: Dalton Cheng CNP [Primary Care Provider] -
--- NOTE | 2017-01-27 04:12 | Anesthesia Evaluation Post Op ---
Date of Encounter: 01/27/17 Time of Encounter: 04:12 - Vital Signs Vital Signs: Vital Signs/O2 Sat, Most Current Temp Pulse Resp BP Pulse Ox 98.5 F 73 92 150/93 92 01/27/17 03:39 01/27/17 04:09 01/27/17 04:09 01/27/17 04:09 01/27/17 04:09 - Lungs Lungs: Clear Ascult./Percussion - Airway Airway: Non-obstructed - Cardiovascular Regular Rate - Mental Status Mental Status: Alert & Oriented, Answers Appropriately - Pain Pain Scale: 0 Pain Scale used: Numeric (1 - 10) - Nausea Vomiting Nausea Vomiting: Not Present - Hydration Hydration: NPO, Lopez catheter - Discharge PostOp Status: Transfer Patient to floor
[2017-01-27] MEDS ORDERED: 0.9 % Sodium Chloride 500 ML ONE (04:15)
[2017-01-27 05:09] LABS: Basophils % 0.2 %; Hematocrit 41.4 % (37.5-50.1); Immature Granulocytes % 0.7 % (0-4); Lymphocytes # 0.6 K/mcL (0.6-4.6); Lymphocytes % 3.4 %; Mean Corpuscular HGB Conc 33.8 g/dL (31.6-35.5); Mean Corpuscular Hemoglobin 31.4 pg (28.0-33.3); Mean Corpuscular Volume 92.8 fL (83.0-100.0); Mean Platelet Volume 11.4 fL (9.4-12.4); Neutrophils # 17.2 K/mcL (1.6-8.9); Platelet Count 207 K/mcL (140-400); Red Blood Count 4.46 M/mcL (4.19-5.50); Red Cell Distribution Width 14.3 % (11.5-14.5); Segmented Neutrophils % 90.7 %
[2017-01-27 05:21] LABS: BUN/Creatinine Ratio 8 (6-26); Blood Urea Nitrogen 10 mg/dL (8-26); Carbon Dioxide 23 mEq/L (19-29); Glucose 168 mg/dL (70-99); Osmolality,Calculated 325 (280-300); Potassium 3.6 mEq/L (3.5-4.5); eGFR For African Americans > 60 (> 60); eGFR For Non-African Americans > 60 (> 60)
[2017-01-27 05:22] LABS: Chloride 122 mEq/L (98-109); Sodium 156 mEq/L (136-145)
--- NOTE | 2017-01-27 06:32 | Orthopedics Progress Note ---
Date of Encounter: 01/27/17 Time of Encounter: 06:31 Subjective Interval history: Patient was seen this morning doing well without complaints. Afebrile vital signs stable. Operative extremity: Neurovascularly intact Dressing clean dry and intact Calves nontender Assessment and plan: Continue with postoperative care Objective Vital signs: Vital Signs Temp Pulse Resp BP Pulse Ox 01/27/17 05:42 98.4 F 66 16 94 01/27/17 05:13 98.1 F 78 16 154/72 99 01/27/17 04:36 97.9 F 72 16 157/99 92 01/27/17 04:19 98.4 F 70 16 154/96 92 01/27/17 04:09 73 92 150/93 92 01/27/17 03:59 75 16 145/108 92 01/27/17 03:49 83 16 152/100 95 01/27/17 03:39 98.5 F 104 16 155/100 96 01/26/17 23:13 98.3 F 70 15 160/88 100 01/26/17 19:27 98.3 F 70 16 114/76 95 01/26/17 10:18 98 F 79 16 153/96 95 01/26/17 06:43 98.7 F 78 16 136/84 95 Intake and Output 01/26/17 01/26/17 01/27/17 15:59 23:59 07:59 Intake Total 0 / 0 Output Total 800 / 800 1677 / 1677 Balance -800 / -800 -1677 / -1677 Intake: Oral 0 / 0 Output: Urine 800 / 800 700 / 700 Estimated Blood Loss 77 / 77 Urine Amount (Catheter) 800 / 800 Catheter 100 / 100 Other: Weight 98 kg Patient Weight 01/27/17 23:59 Weight 98 kg - Labs CBC & BMP: 01/27/17 04:51 01/27/17 04:51 Labs: Abnormal lab results WBC 19.0 K/mcL (4.3-11.1) H 01/27/17 04:51 Neutrophils # 17.2 K/mcL (1.6-8.9) H 01/27/17 04:51 PT 13.3 Seconds (9.4-12.1) H 01/26/17 14:57 Sodium 156 mEq/L (136-145) H D 01/27/17 04:51 Chloride 122 mEq/L (98-109) H D 01/27/17 04:51 Glucose 168 mg/dL (70-99) H 01/27/17 04:51 Calculated Osmolality 325 (280-300) H 01/27/17 04:51 LDL Cholesterol, Calc 122 mg/dL (0-99) H 01/26/17 00:23 - VTE Documentation of Mechanical Device: Graduated compression elastic hosiery Consult Discharge Plan - Plan Additional Instructions: INTERMEDIATE DISCHARGE INSTRUCTIONS Dr. Haney PROCEDURE PERFORMED Reduction and fixation of right hip. Reduction and fixation of the right distal radius Incision care -Regarding the right upper extremity, do not take down your splint or dressings. -Daily dressing changes to the right hip with dry gauze and either paper tape or medipore tape. -Avoid soaking wound in water (no hot tubs, bathtubs, swimming pools). -May shower after 2 weeks from surgery date. Carefully wash incision with soap and water. Gently pat it dry. Don't rub the incision, or apply creams or lotions. Sit on a shower stool when showering to keep from falling. Weight bearing status -Nonweightbearing to the right upper extremity. -Weightbearing as tolerated to the bilateral lower extremities. Medications -Pain medication per the discharging medical doctor -Enteric coated aspirin 325 mg by mouth twice per day for 28 days from the date of the surgery. Other -Knee high PHUC hose 23 hours per day -Consult physical and occupational therapy for mobilization. -Up to chair with assistance at least twice per day. Follow-up with Dr. Haney at the office 2 weeks from the surgery date for a post operative evaluation. Call the office at [phone] to schedule appointment. Referrals: Dalton Cheng CNP [Primary Care Provider] -
[2017-01-27] MEDS: *HR* Enoxaparin 40 MG/0.4 ML SYRINGE SQ SCH (07:28)
[2017-01-27] MEDS: Pantoprazole 40 MG VIAL IVP SCH (08:29)
[2017-01-27] MEDS: 0.9 % Sodium Chloride 1,000 ML IVC SCH (08:29)
[2017-01-27] MEDS: CeFAZolin Premix DUPLEX 2,000 MG/50 ML BAG IVPB SCH ×2 (08:29→15:17)
[2017-01-27] MEDS: Acetaminophen 325 MG TABLET PO PRN ×2 (08:29→15:57)
[2017-01-27] MEDS ORDERED: Aspirin Enteric Coated 81 MG Tablet PO SCH (09:00)
[2017-01-27] MEDS: *HR* HYDROcodone/Acet 5/325 mg TABLET PO PRN ×3 (11:57→22:52)
--- NOTE | 2017-01-27 13:14 | Internal Med Progress Note ---
Date of Encounter: 01/27/17 Time of Encounter: 08:50 - Assessment and plan (1) Fracture of femoral neck, right, closed Current Visit: Yes Status: Acute Assessment and plan: Acute right femoral neck fracture - secondary to a mechanical fall - status post reduction and fixation with medullary nailing, postop day #1 Orthopedics following, tolerated procedure well Continue [place] PRN, IV fluids, DVT prophylaxis Cardiac telemetry, labs in a.m., monitor closely Qualifiers: Encounter type: initial encounter Qualified Code(s): S72.001A - Fracture of unspecified part of neck of right femur, initial encounter for closed fracture (2) Displaced fracture of right ulna Current Visit: Yes Status: Acute Assessment and plan: Acute right displaced fracture of ulna - secondary to mechanical fall Fracture has been reduced and splinted in the ED Orthopedics following Qualifiers: Encounter type: initial encounter Ulna location: styloid process Fracture type: closed Qualified Code(s): S52.611A - Displaced fracture of right ulna styloid process, initial encounter for closed fracture (3) Fracture of right distal radius Current Visit: Yes Status: Acute Assessment and plan: Secondary to mechanical fall - status post reduction and splinting - status post ORIF, postoperative day #1 Orthopedics following Qualifiers: Encounter type: initial encounter Fracture type: closed Fracture morphology: unspecified fracture morphology Qualified Code(s): S52.501A - Unspecified fracture of the lower end of right radius, initial encounter for closed fracture (4) HTN (hypertension) Current Visit: Yes Status: Chronic Assessment and plan: Essential hypertension, controlled, monitor Continue home dose of Lisinopril/HCTZ Qualifiers: Hypertension type: essential hypertension Qualified Code(s): I10 - Essential (primary) hypertension (5) GERD (gastroesophageal reflux disease) Current Visit: Yes Status: Chronic Assessment and plan: Continue Protonix Qualifiers: Esophagitis presence: without esophagitis Qualified Code(s): K21.9 - Gastro -esophageal reflux disease without esophagitis (6) DVT prophylaxis Current Visit: Yes Status: Acute Assessment and plan: Continue Heparin subcutaneous - Time Spent With Patient 25 - 35 minutes - Subjective Interval history: Examined this morning. Patient is awake and alert. Not in any distress. Denies chest pain or shortness of breath. No fever. Hemodynamically stable. Patient complains of mild pain in right lower extremity and right upper extremity. Worse with movement. Alleviated with pain medication. No other acute events or complaints. Admitted for right femoral neck fracture and right comminuted intra-articular distal radius fracture. Patient underwent reduction and fixation of right hip with intramedullary nailing and ORIF of right distal radius fracture. Postop day #1. Patient tolerated procedure well. - Constitutional Vitals: Temp Pulse Resp BP Pulse Ox 98.0 F 70 16 134/80 97 01/27/17 12:55 01/27/17 12:55 01/27/17 12:55 01/27/17 12:55 01/27/17 12:55 General appearance: Present: cooperative, A&O X 3, pleasant, no acute distress, answers questions appropriately - Head Head exam: Present: atraumatic - Eye Eye exam: Present: EOMI - ENT ENT exam: Present: mucous membranes moist - Respiratory Respiratory exam: Present: CTAB. Absent: accessory muscle use, chest wall tenderness, rales, rhonchi, wheezes, tachypnea - Cardiovascular Cardiovascular exam: Present: RRR, +S1, +S2 - GI/Abdominal GI/Abdominal exam: Present: soft. Absent: distended, firm, guarding, tenderness - Extremities Exam Extremities exam: Present: radial pulses palpable and symmetrical. Absent: calf tenderness, cyanotic, pedal edema Additional comments: Right upper and lower extremity neurovascularly intact. Dressing intact. No bleeding. - Neurological Exam Neurological exam: Present: alert, oriented X3, no focal deficits. Absent: facial droop, speech deficit Internal Medicine: Result - Labs CBC & Chem 7: 01/27/17 04:51 01/27/17 04:51 Labs: Short CBC 01/27/17 Range/Units 04:51 WBC 19.0 H (4.3-11.1) K/mcL Hgb 14.0 (12.9-16.9) g/dL Hct 41.4 (37.5-50.1) % Plt Count 207 (140-400) K/mcL Neutrophils # 17.2 H (1.6-8.9) K/mcL BMP 01/27/17 04:51 Sodium 156 H D Potassium 3.6 Chloride 122 H D Carbon Dioxide 23 BUN 10 Creatinine 1.18 Glucose 168 H Calcium 9.0 - ABG Interpretation ABG results: PT/INR, D-dimer PT 13.3 Seconds (9.4-12.1) H 01/26/17 14:57 - Impressions Impressions Echocardiogram 01/26/17 11:06 Impressions: LVEF 55-60%. Normal LV chamber size, wall thickness and function. Mild left ventricular diastolic dysfunction. Normal right ventricular structure and function. Unable to estimate RVSP due to lack of TR jet. No significant valvular dysfunction. Left Ventricular Wall Motion: Rest Echo Findings All wall segments showed normal motion. Findings: Study Quality * Technically adequate exam. ECG Findings * Normal sinus rhythm. Left Ventricle * LVEF 55-60%. * Normal LV chamber size, wall thickness and function. * Mild left ventricular diastolic dysfunction. Right Ventricle * Normal right ventricular structure and function. Left Atrium * Normal left atrial size. Right Atrium * Normal right atrial size. Interatrial Septum * No obvious evidence of a PFO by color Doppler. Aortic Valve * Aortic valve not well visualized. * No aortic regurgitation. * No aortic stenosis. Mitral Valve * Normal mitral valve structure and function. * No mitral regurgitation. * No mitral stenosis. Tricuspid Valve * Normal tricuspid valve structure and function. * No tricuspid regurgitation. * Unable to estimate RVSP due to lack of TR jet. Pulmonic Valve * Pulmonic valve not well visualized. * No pulmonic regurgitation. Aorta * Normally sized aortic root. Pericardium * The pericardium appears normal. IVC * Normal IVC dimensions and inspiratory collapse. Pulmonary Artery * Normal visualized portions of the main pulmonary artery. Fluoroscopy 01/27/17 00:20 IMPRESSION: Intraprocedural fluoroscopic spot images as above. See separate procedure report for more information. D/ /27/2017 08:02:31 Juanito Peng MD / ellen Interpreting Provider: Juanito Peng MD Fluoroscopy 01/27/17 01:50 IMPRESSION: Intraprocedural fluoroscopic spot images as above. See separate procedure report for more information. D/ / 01/27/2017 08:27:54 Juanito Peng MD / dayana Interpreting Provider: Juanito Peng MD - VTE Documentation of Mechanical Device: Intermittent pneumatic compression device Consult Discharge Plan - Plan Additional Instructions: [facility] DISCHARGE INSTRUCTIONS Dr. Haney PROCEDURE PERFORMED Reduction and fixation of right hip. Reduction and fixation of the right distal radius Incision care -Regarding the right upper extremity, do not take down your splint or dressings. -Daily dressing changes to the right hip with dry gauze and either paper tape or medipore tape. -Avoid soaking wound in water (no hot tubs, bathtubs, swimming pools). -May shower after 2 weeks from surgery date. Carefully wash incision with soap and water. Gently pat it dry. Don't rub the incision, or apply creams or lotions. Sit on a shower stool when showering to keep from falling. Weight bearing status -Nonweightbearing to the right upper extremity. -Weightbearing as tolerated to the bilateral lower extremities. Medications -Pain medication per the discharging medical doctor -Enteric coated aspirin 325 mg by mouth twice per day for 28 days from the date of the surgery. Other -Knee high PHUC hose 23 hours per day -Consult physical and occupational therapy for mobilization. -Up to chair with assistance at least twice per day. Follow-up with Dr. Haney at the office 2 weeks from the surgery date for a post operative evaluation. Call the office at [phone] to schedule appointment. Referrals: Dalton Cheng CNP [Primary Care Provider] -
[2017-01-27] MEDS ORDERED: Acetaminophen 325 MG TABLET PO PRN (22:45)
[2017-01-28] MEDS: Aspirin Enteric Coated 325 MG Tablet PO SCH ×3 (03:01→20:17)
[2017-01-28 05:45] LABS: Basophils # 0.1 K/mcL (0.0-0.2); Basophils % 0.4 %; Eosinophils % 0.1 %; Hemoglobin 11.9 g/dL (12.9-16.9); Immature Granulocytes % 0.4 % (0-4); Lymphocytes % 7.3 %; Mean Corpuscular Hemoglobin 31.4 pg (28.0-33.3); Mean Corpuscular Volume 92.3 fL (83.0-100.0); Mean Platelet Volume 11.4 fL (9.4-12.4); Monocytes # 1.4 K/mcL (0.0-1.3); Monocytes % 10.1 %; Neutrophils # 11.4 K/mcL (1.6-8.9); Platelet Count 199 K/mcL (140-400); Red Blood Count 3.79 M/mcL (4.19-5.50); Red Cell Distribution Width 13.9 % (11.5-14.5); Segmented Neutrophils % 81.7 %
[2017-01-28 05:58] LABS: BUN/Creatinine Ratio 8 (6-26); Blood Urea Nitrogen 8 mg/dL (8-26); Calcium 8.5 mg/dL (8.6-10.8); Carbon Dioxide 26 mEq/L (19-29); Chloride 108 mEq/L (98-109); Glucose 121 mg/dL (70-99); Osmolality,Calculated 296 (280-300); Potassium 2.9 mEq/L (3.5-4.5); eGFR For African Americans > 60 (> 60); eGFR For Non-African Americans > 60 (> 60)
[2017-01-28 06:13] LABS: Sodium 143 mEq/L (136-145)
[2017-01-28] MEDS: *HR* Enoxaparin 40 MG/0.4 ML SYRINGE SQ SCH (06:26)
[2017-01-28] MEDS: *HR* HYDROcodone/Acet 5/325 mg TABLET PO PRN ×3 (06:26→20:17)
--- NOTE | 2017-01-28 06:50 | Orthopedics Progress Note ---
Date of Encounter: 01/28/17 Time of Encounter: 06:50 Subjective Interval history: Patient was seen this morning doing well without complaints. Afebrile vital signs stable. Operative extremity: Neurovascularly intact Dressing clean dry and intact Calves nontender Assessment and plan: Continue with postoperative care hct 35 Objective Vital signs: Vital Signs Temp Pulse Resp BP Pulse Ox 01/28/17 06:36 98.0 F 82 18 154/87 98 01/28/17 04:08 98.0 F 75 18 128/78 99 01/28/17 00:31 98.2 F 71 17 123/73 99 01/27/17 19:58 98.0 F 75 17 126/79 99 01/27/17 16:50 98.9 F 71 16 151/93 95 01/27/17 12:55 98.0 F 70 16 134/80 97 01/27/17 08:51 99.0 F 83 16 158/97 97 01/27/17 07:39 98.4 F 16 156/96 95 Intake and Output 01/27/17 01/27/17 01/28/17 15:59 23:59 07:59 Intake Total 170 / 170 2790 / 2790 600 / 600 Output Total 3100 / 3100 2900 / 2900 Balance 170 / 170 -310 / -310 -2300 / -2300 Intake: IV Fluids 50 / 50 Ancef Premix DUPLEX 2,000 mg In 50 / 50 50 ml @ 100 mls/hr IVPB Q8HR [facility] Rx#:[id number] Oral 120 / 120 1640 / 1640 600 / 600 Free Water 1150 / 1150 Output: Urine 3100 / 3100 2900 / 2900 Other: Meal Breakfast Lunch Percent of Meal Consumed 20% 5% Weight 98.2 kg Patient Weight 01/28/17 23:59 Weight 98.2 kg - Labs CBC & BMP: 01/28/17 05:28 01/28/17 05:28 Labs: Abnormal lab results WBC 13.9 K/mcL (4.3-11.1) H 01/28/17 05:28 RBC 3.79 M/mcL (4.19-5.50) L 01/28/17 05:28 Hgb 11.9 g/dL (12.9-16.9) L D 01/28/17 05:28 Hct 35.0 % (37.5-50.1) L 01/28/17 05:28 Neutrophils # 11.4 K/mcL (1.6-8.9) H 01/28/17 05:28 Monocytes # 1.4 K/mcL (0.0-1.3) H 01/28/17 05:28 PT 13.3 Seconds (9.4-12.1) H 01/26/17 14:57 Potassium 2.9 mEq/L (3.5-4.5) L 01/28/17 05:28 Glucose 121 mg/dL (70-99) H 01/28/17 05:28 Calcium 8.5 mg/dL (8.6-10.8) L 01/28/17 05:28 LDL Cholesterol, Calc 122 mg/dL (0-99) H 01/26/17 00:23 - VTE Documentation of Mechanical Device: Intermittent pneumatic compression device Consult Discharge Plan - Plan Additional Instructions: [facility] DISCHARGE INSTRUCTIONS Dr. Haney PROCEDURE PERFORMED Reduction and fixation of right hip. Reduction and fixation of the right distal radius Incision care -Regarding the right upper extremity, do not take down your splint or dressings. -Daily dressing changes to the right hip with dry gauze and either paper tape or medipore tape. -Avoid soaking wound in water (no hot tubs, bathtubs, swimming pools). -May shower after 2 weeks from surgery date. Carefully wash incision with soap and water. Gently pat it dry. Don't rub the incision, or apply creams or lotions. Sit on a shower stool when showering to keep from falling. Weight bearing status -Nonweightbearing to the right upper extremity. -Weightbearing as tolerated to the bilateral lower extremities. Medications -Pain medication per the discharging medical doctor -Enteric coated aspirin 325 mg by mouth twice per day for 28 days from the date of the surgery. Other -Knee high PHUC hose 23 hours per day -Consult physical and occupational therapy for mobilization. -Up to chair with assistance at least twice per day. Follow-up with Dr. Haney at the office 2 weeks from the surgery date for a post operative evaluation. Call the office at [phone] to schedule appointment. Referrals: Dalton Cheng MARBLE CARVER [Primary Care Provider] -
[2017-01-28] MEDS: Pantoprazole 40 MG VIAL IVP SCH (08:41)
[2017-01-28] MEDS: 0.9 % Sodium Chloride 1,000 ML IVC SCH ×2 (10:21→10:44)
--- NOTE | 2017-01-28 11:34 | Internal Med Progress Note ---
Date of Encounter: 01/28/17 Time of Encounter: 10:30 - Assessment and plan (1) Fracture of femoral neck, right, closed Current Visit: Yes Status: Acute Assessment and plan: Acute right femoral neck fracture - secondary to a mechanical fall - status post reduction and fixation with medullary nailing, postop day #2 Orthopedics following Continue [place] PRN, IV fluids, DVT prophylaxis Cardiac telemetry, labs in a.m., monitor closely Anticipate discharge to [facility] tomorrow Qualifiers: Encounter type: initial encounter Qualified Code(s): S72.001A - Fracture of unspecified part of neck of right femur, initial encounter for closed fracture (2) Displaced fracture of right ulna Current Visit: Yes Status: Acute Assessment and plan: Acute right displaced fracture of ulna - secondary to mechanical fall Fracture has been reduced and splinted in the ED Orthopedics following Qualifiers: Encounter type: initial encounter Ulna location: styloid process Fracture type: closed Qualified Code(s): S52.611A - Displaced fracture of right ulna styloid process, initial encounter for closed fracture (3) Fracture of right distal radius Current Visit: Yes Status: Acute Assessment and plan: Secondary to mechanical fall - status post reduction and splinting - status post ORIF, postoperative day #2 Orthopedics following Qualifiers: Encounter type: initial encounter Fracture type: closed Fracture morphology: unspecified fracture morphology Qualified Code(s): S52.501A - Unspecified fracture of the lower end of right radius, initial encounter for closed fracture (4) HTN (hypertension) Current Visit: Yes Status: Chronic Assessment and plan: Essential hypertension, controlled, monitor Continue home dose of Lisinopril/HCTZ Qualifiers: Hypertension type: essential hypertension Qualified Code(s): I10 - Essential (primary) hypertension (5) GERD (gastroesophageal reflux disease) Current Visit: Yes Status: Chronic Assessment and plan: Continue Protonix Qualifiers: Esophagitis presence: without esophagitis Qualified Code(s): K21.9 - Gastro -esophageal reflux disease without esophagitis (6) DVT prophylaxis Current Visit: Yes Status: Acute Assessment and plan: Continue Heparin subcutaneous - Time Spent With Patient 25 - 35 minutes - Subjective Interval history: Examined this morning. Patient is awake and alert. Not in any distress. Denies chest pain or shortness of breath. No fever. Hemodynamically stable. Patient complains of mild pain in right lower extremity and right upper extremity. Feels better today. No other acute events or complaints. Admitted for right femoral neck fracture and right comminuted intra-articular distal radius fracture. Patient underwent reduction and fixation of right hip with intramedullary nailing and ORIF of right distal radius fracture. Postop day #2. Anticipate discharge to [facility] tomorrow. - Constitutional Vitals: Temp Pulse Resp BP Pulse Ox 98.0 F 82 18 154/87 98 01/28/17 06:36 01/28/17 06:36 01/28/17 06:36 01/28/17 06:36 01/28/17 06:36 General appearance: Present: cooperative, A&O X 3, pleasant, no acute distress, answers questions appropriately - Head Head exam: Present: atraumatic - Eye Eye exam: Present: EOMI - ENT ENT exam: Present: mucous membranes moist - Respiratory Respiratory exam: Present: CTAB. Absent: accessory muscle use, chest wall tenderness, rales, rhonchi, wheezes, tachypnea - Cardiovascular Cardiovascular exam: Present: RRR, +S1, +S2 - GI/Abdominal GI/Abdominal exam: Present: soft. Absent: distended, firm, guarding, tenderness - Extremities Exam Extremities exam: Absent: calf tenderness, cyanotic, pedal edema Additional comments: Right upper and lower extremity neurovascularly intact. Dressing intact. No bleeding. - Neurological Exam Neurological exam: Present: alert, oriented X3, no focal deficits. Absent: facial droop, speech deficit Internal Medicine: Result - Labs CBC & Chem 7: 01/28/17 05:28 01/28/17 05:28 Labs: Short CBC 01/28/17 Range/Units 05:28 WBC 13.9 H (4.3-11.1) K/mcL Hgb 11.9 L D (12.9-16.9) g/dL Hct 35.0 L (37.5-50.1) % Plt Count 199 (140-400) K/mcL Neutrophils # 11.4 H (1.6-8.9) K/mcL BMP 01/28/17 05:28 Sodium 143 D Potassium 2.9 L Chloride 108 Carbon Dioxide 26 BUN 8 Creatinine 0.98 Glucose 121 H Calcium 8.5 L - ABG Interpretation ABG results: PT/INR, D-dimer PT 13.3 Seconds (9.4-12.1) H 01/26/17 14:57 - VTE Documentation of Mechanical Device: Intermittent pneumatic compression device Consult Discharge Plan - Plan Additional Instructions: [facility] DISCHARGE INSTRUCTIONS Dr. Haney PROCEDURE PERFORMED Reduction and fixation of right hip. Reduction and fixation of the right distal radius Incision care -Regarding the right upper extremity, do not take down your splint or dressings. -Daily dressing changes to the right hip with dry gauze and either paper tape or medipore tape. -Avoid soaking wound in water (no hot tubs, bathtubs, swimming pools). -May shower after 2 weeks from surgery date. Carefully wash incision with soap and water. Gently pat it dry. Don't rub the incision, or apply creams or lotions. Sit on a shower stool when showering to keep from falling. Weight bearing status -Nonweightbearing to the right upper extremity. -Weightbearing as tolerated to the bilateral lower extremities. Medications -Pain medication per the discharging medical doctor -Enteric coated aspirin 325 mg by mouth twice per day for 28 days from the date of the surgery. Other -Knee high PHUC hose 23 hours per day -Consult physical and occupational therapy for mobilization. -Up to chair with assistance at least twice per day. Follow-up with Dr. Haney at the office 2 weeks from the surgery date for a post operative evaluation. Call the office at [phone] to schedule appointment. Referrals: Dalton Cheng CNP [Primary Care Provider] -
[2017-01-29] MEDS: *HR* Enoxaparin 40 MG/0.4 ML SYRINGE SQ SCH (05:24)
[2017-01-29 05:51] LABS: BUN/Creatinine Ratio 9 (6-26); Blood Urea Nitrogen 8 mg/dL (8-26); Calcium 8.4 mg/dL (8.6-10.8); Carbon Dioxide 25 mEq/L (19-29); Chloride 112 mEq/L (98-109); Glucose 106 mg/dL (70-99); Osmolality,Calculated 299 (280-300); Sodium 145 mEq/L (136-145); eGFR For African Americans > 60 (> 60); eGFR For Non-African Americans > 60 (> 60)
[2017-01-29] MEDS: *HR* HYDROcodone/Acet 5/325 mg TABLET PO PRN ×3 (06:50→16:08)
--- NOTE | 2017-01-29 06:53 | Orthopedics Progress Note ---
Date of Encounter: 01/29/17 Time of Encounter: 06:51 - Assessment and Plan (1) Fracture of femoral neck, right, closed Current Visit: Yes Status: Acute I did discuss the diagnosis in detail with the patient. He has a right significantly displaced distal radius fracture. He also has a right basicervical femoral neck fracture. Treatment options were discussed and the recommendation was for reduction and internal fixation of both fractures. Regarding the wrist to goal is to realign and restore function to the right upper extremity. The goal of the hip fracture is to realign and stabilize the hip. The risks discussed included but were not limited to stiffness, bleeding, infection, blood clots, damage to neurovascular structures, tendons, ligaments, and bone. Also discussed was the risk of continued symptoms and possible need for further procedures. I did discuss the anesthesia risks including stroke, heart attack, and . We discussed the reasonable, foreseeable postoperative course with the patient. He did wish to proceed and consent will be obtained. Qualifiers: Encounter type: initial encounter Qualified Code(s): S72.001A - Fracture of unspecified part of neck of right femur, initial encounter for closed fracture Subjective Interval history: S: The patient did well over the weekend Pain is controlled with the right hip and the right wrist. O: Afebrile and vital signs are stable. Right upper extremity splint in place. Fingers are mildly puffy but mobile though there is limitation due to swelling. The fingertips are all grossly sensate and well-perfused. Right lower extremity dressing changed. Mild serosanguineous drainage from the proximal wound. No significant pain with passive motion of the hip Area he can dorsiflex and plantarflex ankle and toes. A: Post internal fixation of the right wrist and hip P: Nonweightbearing to the right upper extremity. Weightbearing as tolerated to the bilateral lower extremities. Aspirin 325 mg by mouth twice a day for DVT prophylaxis. I discontinued the Lovenox. Orthopedically stable for discharge. Follow-up in the office with me 2 weeks from the date of the surgery for stitch and staple removal. Objective Vital signs: Vital Signs Temp Pulse Resp BP Pulse Ox 01/29/17 03:55 98.3 F 80 18 130/81 98 01/29/17 00:04 98.2 F 83 17 133/80 98 01/28/17 20:41 99.0 F 89 18 141/81 98 01/28/17 15:22 99.7 F H 85 18 142/87 98 01/28/17 11:38 98.3 F 91 18 135/88 96 Intake and Output 01/28/17 01/28/17 01/29/17 15:59 23:59 07:59 Intake Total 580 / 580 100 / 100 800 / 800 Output Total 1900 / 1900 600 / 600 2200 / 2200 Balance -1320 / -1320 -500 / -500 -1400 / -1400 Intake: IV Fluids 100 / 100 Potassium Chloride 10 mEq/100mL 100 / 100 10 meq In 100 ml @ 100 mls/hr IVPB Q1H [facility] Rx#:[id number] Oral 480 / 480 100 / 100 800 / 800 Output: Urine 1900 / 1900 600 / 600 2200 / 2200 Other: Meal Lunch Percent of Meal Consumed 25% Weight 103 kg Patient Weight 01/29/17 23:59 Weight 103 kg - Labs CBC & BMP: 01/28/17 05:28 01/29/17 05:18 Labs: Abnormal lab results WBC 13.9 K/mcL (4.3-11.1) H 01/28/17 05:28 RBC 3.79 M/mcL (4.19-5.50) L 01/28/17 05:28 Hgb 11.9 g/dL (12.9-16.9) L D 01/28/17 05:28 Hct 35.0 % (37.5-50.1) L 01/28/17 05:28 Neutrophils # 11.4 K/mcL (1.6-8.9) H 01/28/17 05:28 Monocytes # 1.4 K/mcL (0.0-1.3) H 01/28/17 05:28 PT 13.3 Seconds (9.4-12.1) H 01/26/17 14:57 Potassium 3.0 mEq/L (3.5-4.5) L 01/29/17 05:18 Chloride 112 mEq/L (98-109) H 01/29/17 05:18 Glucose 106 mg/dL (70-99) H 01/29/17 05:18 Calcium 8.4 mg/dL (8.6-10.8) L 01/29/17 05:18 LDL Cholesterol, Calc 122 mg/dL (0-99) H 01/26/17 00:23 - VTE Documentation of Mechanical Device: Intermittent pneumatic compression device Consult Discharge Plan - Plan Additional Instructions: [facility] DISCHARGE INSTRUCTIONS Dr. Haney PROCEDURE PERFORMED Reduction and fixation of right hip. Reduction and fixation of the right distal radius Incision care -Regarding the right upper extremity, do not take down your splint or dressings. -Daily dressing changes to the right hip with dry gauze and either paper tape or medipore tape. -Avoid soaking wound in water (no hot tubs, bathtubs, swimming pools). -May shower after 2 weeks from surgery date. Carefully wash incision with soap and water. Gently pat it dry. Don't rub the incision, or apply creams or lotions. Sit on a shower stool when showering to keep from falling. Weight bearing status -Nonweightbearing to the right upper extremity. -Weightbearing as tolerated to the bilateral lower extremities. Medications -Pain medication per the discharging medical doctor -Enteric coated aspirin 325 mg by mouth twice per day for 28 days from the date of the surgery. Other -Knee high PHUC hose 23 hours per day -Consult physical and occupational therapy for mobilization. -Up to chair with assistance at least twice per day. Follow-up with Dr. Haney at the office 2 weeks from the surgery date for a post operative evaluation. Call the office at [phone] to schedule appointment. Referrals: Dalton Cheng CNP [Primary Care Provider] -
[2017-01-29] MEDS: Pantoprazole 40 MG VIAL IVP SCH (08:25)
[2017-01-29] MEDS: Aspirin Enteric Coated 325 MG Tablet PO SCH ×2 (08:25→20:08)
--- NOTE | 2017-01-29 09:35 | Discharge Summary ---
Date of Encounter: 01/29/17 Time of Encounter: 08:20 - Discharge Diagnosis (1) Fracture of femoral neck, right, closed Priority: Primary Status: Acute Comments: Acute right femoral neck fracture - secondary to a mechanical fall - status post reduction and fixation with medullary nailing, postop day #3 Orthopedics following - advised outpatient follow-up in 2 weeks Continue [place] PRN, DVT prophylaxis with Aspirin 325 mg twice daily Continue PT/OT Discharge to ECF today Qualifiers: Encounter type: initial encounter Qualified Code(s): S72.001A - Fracture of unspecified part of neck of right femur, initial encounter for closed fracture (2) Fracture of right distal radius Priority: Primary Status: Acute Comments: Secondary to mechanical fall - status post reduction and splinting - status post ORIF, postoperative day #3 Tolerated procedure well Orthopedics following - follow-up in 2 weeks as outpatient Qualifiers: Encounter type: initial encounter Fracture type: closed Fracture morphology: unspecified fracture morphology Qualified Code(s): S52.501A - Unspecified fracture of the lower end of right radius, initial encounter for closed fracture (3) Displaced fracture of right ulna Priority: Primary Status: Acute Comments: Acute right displaced fracture of ulna - secondary to mechanical fall Fracture has been reduced and splinted in the ED Orthopedics following - follow-up as outpatient in 2 weeks Qualifiers: Encounter type: initial encounter Ulna location: styloid process Fracture type: closed Qualified Code(s): S52.611A - Displaced fracture of right ulna styloid process, initial encounter for closed fracture (4) HTN (hypertension) Priority: Primary Status: Chronic Comments: Essential hypertension, controlled, monitor Continue home dose of Lisinopril/HCTZ Qualifiers: Hypertension type: essential hypertension Qualified Code(s): I10 - Essential (primary) hypertension (5) GERD (gastroesophageal reflux disease) Priority: Primary Status: Chronic Comments: Continue Protonix Qualifiers: Esophagitis presence: without esophagitis Qualified Code(s): K21.9 - Gastro -esophageal reflux disease without esophagitis (6) DVT prophylaxis Priority: Primary Status: Acute Comments: Continue Aspirin 325 mg twice daily - Discharge Medications Prescriptions: Aspirin 325 mg PO BID 10 Days #20 tablet HYDROcodone/Acet 5/325 mg [[place] 5-325 mg] 1 tab PO Q6H PRN #10 tablet PRN Reason: SEVERE PAIN Potassium Chloride [Klor-Con 10] 10 meq PO BIDWM 10 Days #20 tablet.er Home Medications: Enalapril/Hydrochlorothiazide [Vaseretic 10-25 mg Tablet] 1 tab PO DAILY [History] Simvastatin [Zocor] 40 mg PO HS 01/27/17 [History] Aspirin 325 mg PO BID 10 Days #20 tablet 01/29/17 [Rx] Aspirin [Lo-Dose Aspirin EC] 81 mg PO DAILY #0 01/29/17 [Rx] HYDROcodone/Acet 5/325 mg [[place] 5-325 mg] 1 tab PO Q6H PRN #10 tablet 01/29/17 [Rx] Potassium Chloride [Klor-Con 10] 10 meq PO BIDWM 10 Days #20 tablet.er 01/29/17 [Rx] Allergies/Adverse Reactions: 3 Allergy/AdvReac Type Severity Reaction Status Date / Time morphine Allergy Unknown Gastrointestinal Verified 01/25/17 16:15 Upset Procedures/tests Complete & Pending: Procedures Performed prior 72 hours Category Date Time Status EV echocardiogram Stat Y 01/26/17 11:06 Completed Date of admission: 01/25/17 15:13 Primary care physician: Dalton Cheng CNP Consults: 01/25/17 17:18 Consult to Orthopedic Surgery [CONS] Routine Consulting Provider: [facility] Reason for Consult: Comminuted fracture right femoral neck greater trochanter Comminuted fracture distal radius, displaced fracture of the ulna styloid process Time Notified: 17:21 Call Completed: No 01/26/17 00:16 Consult to Cardiology [CONS] Routine Comment: Consulting Provider: Card[facility] Reason for Consult: preop clearance Time Notified: 00:16 Call Completed: No 01/27/17 03:48 Consult to Occupational Therapy [CONS] Routine Comment: Evaluate, develop and implement POC Reason for Consult: post hip surgery Consult to Physical Therapy [CONS] Routine Comment: Evaluate, develop and implement POC Reason for Consult: post hip surgery Consult to Delimber Operator [CONS] Routine Reason for SW Consult: post -op hip fracture Anticipated date of discharge: 01/29/17 - Patient Status Disposition: Transfer SNF Condition: Good Functional capacity at discharge: uses cane/walker Overall status at discharge: patient is progressing back to baseline - Discharge Instructions Follow Up With: Dalton Cehng CNP [Primary Care Provider] - Marc Haney MD [Partnered Physician] - Additional Instructions: [facility] DISCHARGE INSTRU[facility] Dr. Haney PROCEDURE PERFORMED Reduction and fixation of right hip. Reduction and fixation of the right distal radius Incision care -Regarding the right upper extremity, do not take down your splint or dressings. -Daily dressing changes to the right hip with dry gauze and either paper tape or medipore tape. -Avoid soaking wound in water (no hot tubs, bathtubs, swimming pools). -May shower after 2 weeks from surgery date. Carefully wash incision with soap and water. Gently pat it dry. Don't rub the incision, or apply creams or lotions. Sit on a shower stool when showering to keep from falling. Weight bearing status -Nonweightbearing to the right upper extremity. -Weightbearing as tolerated to the bilateral lower extremities. Medications -Pain medication per the discharging medical doctor -Enteric coated aspirin 325 mg by mouth twice per day for 28 days from the date of the surgery. Other -Knee high PHUC hose 23 hours per day -Consult physical and occupational therapy for mobilization. -Up to chair with assistance at least twice per day. Follow-up with Dr. Haney at the office 2 weeks from the surgery date for a post operative evaluation. Call the office at [phone] to schedule appointment. - Diet and Activity Activity: as per physical therapy, increase activity as tolerated Diet: advance to your usual diet, regular diet Hospital course: Mr. Voss is a 56 year old male with past medical history of hypertension. He presented to ED with complaint of right arm pain and right hip pain. Patient was apparently at work he was up on a ladder and then had a fall. He tried to break his fall with his arm and landed onto his right arm and right hip. He did not injure his head or have loss of consciousness. Initial x-ray revealed a comminuted fracture of the distal radius and displaced fracture with ulnar styloid process. Patient also had a right femoral neck fracture. Patient had reduction of the right wrist in the ER. Orthopedics was consulted. Patient was kept nothing by mouth. Cardiology has evaluated the patient and cleared the patient for surgery. He has acceptable intermediate cardiovascular risk for surgery. Patient was on IV Dilaudid for pain control. He was on heparin subcutaneous for DVT prophylaxis. We continued his home dose of lisinopril and HCTZ. Patient underwent reduction and fixation with intramedullary nailing of the right femoral neck fracture. He also underwent ORIF of right distal radius. Orthopedics has been following the patient during his stay. He currently has a splint over her right upper extremity. Right hip dressing looks intact. No bleeding. Right upper extremity and lower extremity are neurovascularly intact. Patient is ambulating with assistance. PT/OT has evaluated the patient. He is tolerating oral diet well. No other acute events or complaints during his stay in the hospital. Patient and his have been explained about his condition and plan of care in detail. They understood and agreed. No unanswered questions. Advised to return if symptoms worsen. Follow up with orthopedics in 2 weeks. Stable for discharge to [facility] today. - Time Spent with Patient Total time spent providing and/or coordinating discharge services: Greater than 30 minutes - Constitutional Vitals: Temp Pulse Resp BP Pulse Ox 98.5 F 86 16 134/78 99 01/29/17 06:45 01/29/17 06:45 01/29/17 06:45 01/29/17 06:45 01/29/17 06:45 General appearance: Present: cooperative, A&O X 3, pleasant, no acute distress, answers questions appropriately - Head Head exam: Present: atraumatic - Eye Eye exam: Present: EOMI - ENT ENT exam: Present: mucous membranes moist - Respiratory Respiratory exam: Present: CTAB. Absent: accessory muscle use, chest wall tenderness, rales, rhonchi, wheezes, tachypnea - Cardiovascular Cardiovascular exam: Present: RRR, +S1, +S2 - GI/Abdominal GI/Abdominal exam: Present: soft. Absent: distended, firm, guarding, tenderness - Extremities Exam Extremities exam: Absent: calf tenderness, cyanotic, pedal edema Additional comments: Right upper and lower extremity neurovascularly intact. Dressing intact. No bleeding. - Neurological Exam Neurological exam: Present: alert, oriented X3, no focal deficits. Absent: facial droop, speech deficit - VTE Documentation of Mechanical Device: Intermittent pneumatic compression device
--- NOTE | 2017-01-29 09:46 | Physician Discharge Referral ---
ExtendedCare Referral Info Provider in Charge after Transfer: PCP Institutional Level of Care: Skilled - Diagnosis (1) Fracture of femoral neck, right, closed Priority: Primary Status: Acute (2) Fracture of right distal radius Priority: Primary Status: Acute (3) Displaced fracture of right ulna Priority: Primary Status: Acute (4) HTN (hypertension) Priority: Primary Status: Chronic (5) GERD (gastroesophageal reflux disease) Priority: Primary Status: Chronic (6) DVT prophylaxis Priority: Primary Status: Acute Prognosis: Good Aware of Diagnosis: Patient, Family Aware of Prognosis: Patient, Family - Transfer Medications Prescriptions: Aspirin 325 mg PO BID 10 Days #20 tablet HYDROcodone/Acet 5/325 mg [[place] 5-325 mg] 1 tab PO Q6H PRN #10 tablet PRN Reason: SEVERE PAIN Potassium Chloride [Klor-Con 10] 10 meq PO BIDWM 10 Days #20 tablet.er Home Medications: Enalapril/Hydrochlorothiazide [Vaseretic 10-25 mg Tablet] 1 tab PO DAILY [History] Simvastatin [Zocor] 40 mg PO HS 01/27/17 [History] Aspirin 325 mg PO BID 10 Days #20 tablet 01/29/17 [Rx] Aspirin [Lo-Dose Aspirin EC] 81 mg PO DAILY #0 01/29/17 [Rx] HYDROcodone/Acet 5/325 mg [[place] 5-325 mg] 1 tab PO Q6H PRN #10 tablet 01/29/17 [Rx] Potassium Chloride [Klor-Con 10] 10 meq PO BIDWM 10 Days #20 tablet.er 01/29/17 [Rx] Allergies/Adverse Reactions: 3 Allergy/AdvReac Type Severity Reaction Status Date / Time morphine Allergy Unknown Gastrointestinal Verified 01/25/17 16:15 Upset - Respiratory Orders Smoking Cessation: Smoking cessation has been advised. For more information, call the [place] Tobacco Quit Line at 7-173-[facility]-NOW. - Ancillary Orders May use pressure relief devices daily prn - Advance Directives Code Status: Full Code - Rehabiliation Orders Rehab Potential: Good Rehab Orders: Evaluation for Physical Therapy, Evaluation for Occupational Therapy - Treatments Skin tear care topically daily PRN per policy - Diet Orders Regular CERTIFICATION: I certify that the transfer of the above named patient to an Extended Care Facility is necessary for the continuing treatment of the diagnosis listed. The above information is true and accurate reflection of patient's current condition. Confidential - Redisclosure prohibited without a patient's written consent.
[2017-01-30] MEDS: *HR* HYDROcodone/Acet 5/325 mg TABLET PO PRN ×2 (08:51→13:48)
[2017-01-30] MEDS: Pantoprazole 40 MG VIAL IVP SCH (08:51)
[2017-01-30] MEDS: Aspirin Enteric Coated 325 MG Tablet PO SCH (08:51)
[2017-01-30 11:42] VITALS: BP 119/79
[2017-01-30 14:41] LABS: Basophils # 0.1 K/mcL (0.0-0.2); Basophils % 0.5 %; Eosinophils # 0.2 K/mcL (0.0-0.6); Eosinophils % 1.6 %; Hematocrit 34.3 % (37.5-50.1); Hemoglobin 11.9 g/dL (12.9-16.9); Immature Granulocytes % 0.4 % (0-4); Lymphocytes # 1.1 K/mcL (0.6-4.6); Lymphocytes % 8.7 %; Mean Corpuscular HGB Conc 34.7 g/dL (31.6-35.5); Mean Corpuscular Hemoglobin 31.3 pg (28.0-33.3); Mean Corpuscular Volume 90.3 fL (83.0-100.0); Mean Platelet Volume 10.8 fL (9.4-12.4); Monocytes # 1.2 K/mcL (0.0-1.3); Monocytes % 9.6 %; Neutrophils # 9.7 K/mcL (1.6-8.9); Platelet Count 277 K/mcL (140-400); Red Cell Distribution Width 13.4 % (11.5-14.5); Segmented Neutrophils % 79.2 %
[2017-01-30 14:43] LABS: BUN/Creatinine Ratio 9 (6-26); Blood Urea Nitrogen 10 mg/dL (8-26); Calcium 9.1 mg/dL (8.6-10.8); Carbon Dioxide 25 mEq/L (19-29); Chloride 104 mEq/L (98-109); Glucose 114 mg/dL (70-99); Magnesium 2.3 mg/dL (1.6-2.6); Osmolality,Calculated 286 (280-300); Potassium 3.1 mEq/L (3.5-4.5); Sodium 138 mEq/L (136-145); eGFR For African Americans > 60 (> 60); eGFR For Non-African Americans > 60 (> 60)
[2017-01-30] MEDS ORDERED: Potassium Chloride Elixir 20 MEQ/15 ML UDC PO ONE (14:54)
--- NOTE | 2017-01-30 15:44 | Internal Med Progress Note ---
Date of Encounter: 01/30/17 Time of Encounter: 14:40 - Assessment and plan (1) Fracture of right distal radius Status: Acute Assessment and plan: Patient is noted to have fracture of right distal radius and underwent open reduction and internal fixation. Cleared by orthopedics for discharge to rehabilitation. Nonweightbearing on right upper extremity. Currently in sling. Pain control with when necessary oxycodone. Supportive care. Qualifiers: Encounter type: initial encounter Fracture type: closed Fracture morphology: unspecified fracture morphology Qualified Code(s): S52.501A - Unspecified fracture of the lower end of right radius, initial encounter for closed fracture (2) Fracture of femoral neck, right, closed Status: Acute Assessment and plan: Noted to have basicervical fracture of right femoral neck status post open reduction internal fixation with intramedullary nail. Cleared by orthopedics for discharge with outpatient follow-up. Weightbearing as tolerated. Physical therapy recommends placement in inpatient rehabilitation, stable for transfer today. Qualifiers: Encounter type: initial encounter Qualified Code(s): S72.001A - Fracture of unspecified part of neck of right femur, initial encounter for closed fracture (3) HTN (hypertension) Status: Chronic Qualifiers: Hypertension type: essential hypertension Qualified Code(s): I10 - Essential (primary) hypertension (4) GERD (gastroesophageal reflux disease) Status: Chronic Qualifiers: Esophagitis presence: without esophagitis Qualified Code(s): K21.9 - Gastro -esophageal reflux disease without esophagitis - Subjective Interval history: Feels better; pain in left wrist and hip controlled; awaiting rehab placement; - Constitutional Vitals: Temp Pulse Resp BP Pulse Ox 97.6 F 79 18 119/79 94 01/30/17 11:41 01/30/17 11:41 01/30/17 11:41 01/30/17 11:41 01/30/17 11:41 General appearance: Present: cooperative, A&O X 3, no acute distress, answers questions appropriately - Respiratory Respiratory exam: Present: CTAB. Absent: accessory muscle use, rales, rhonchi, wheezes - Cardiovascular Cardiovascular exam: Present: RRR, +S1, +S2. Absent: diastolic murmur, gallop, rubs, systolic murmur - Extremities Exam Extremities exam: Present: warm, radial pulses palpable and symmetrical. Absent : calf tenderness, cyanotic, pedal edema Additional comments: right UE in sling/splint; Internal Medicine: Result - Labs CBC & Chem 7: 01/30/17 14:20 01/30/17 14:20 Labs: Short CBC 01/30/17 Range/Units 14:20 WBC 12.3 H (4.3-11.1) K/mcL Hgb 11.9 L (12.9-16.9) g/dL Hct 34.3 L (37.5-50.1) % Plt Count 277 (140-400) K/mcL Neutrophils # 9.7 H (1.6-8.9) K/mcL BMP 01/30/17 14:20 Sodium 138 Potassium 3.1 L Chloride 104 Carbon Dioxide 25 BUN 10 Creatinine 1.07 Glucose 114 H Calcium 9.1 - ABG Interpretation ABG results: PT/INR, D-dimer PT 13.3 Seconds (9.4-12.1) H 01/26/17 14:57 - VTE Documentation of Mechanical Device: Intermittent pneumatic compression device Consult Discharge Plan - Plan Additional Instructions: SNF DISCHARGE INSTRUCTIONS Dr. Haney PROCEDURE PERFORMED Reduction and fixation of right hip. Reduction and fixation of the right distal radius Incision care -Regarding the right upper extremity, do not take down your splint or dressings. -Daily dressing changes to the right hip with dry gauze and either paper tape or medipore tape. -Avoid soaking wound in water (no hot tubs, bathtubs, swimming pools). -May shower after 2 weeks from surgery date. Carefully wash incision with soap and water. Gently pat it dry. Don't rub the incision, or apply creams or lotions. Sit on a shower stool when showering to keep from falling. Weight bearing status -Nonweightbearing to the right upper extremity. -Weightbearing as tolerated to the bilateral lower extremities. Medications -Pain medication per the discharging medical doctor -Enteric coated aspirin 325 mg by mouth twice per day for 28 days from the date of the surgery. Other -Knee high PHUC hose 23 hours per day -Consult physical and occupational therapy for mobilization. -Up to chair with assistance at least twice per day. Follow-up with Dr. Haney at the office 2 weeks from the surgery date for a post operative evaluation. Call the office at [phone] to schedule appointment. Referrals: Marc Haney MD [Partnered Physician] - Dalton Cheng CNP [Primary Care Provider] - Prescriptions: Aspirin 325 mg PO BID 10 Days #20 tablet HYDROcodone/Acet 5/325 mg [[place] 5-325 mg] 1 tab PO Q6H PRN #10 tablet PRN Reason: SEVERE PAIN Potassium Chloride [Klor-Con 10] 10 meq PO BIDWM 10 Days #20 tablet.er
== END 2017-01-30 17:11 | DRG 481 ==
LOC: 3NENU 15:13 → SUATTDRO 15:13
PROVIDERS: ADMIT Internal Medicine; ATTEND Internal Medicine

== ENCOUNTER 2019-05-26 22:50 | Observation (INO) ==
[2019-05-27] MEDS ORDERED: Naloxone 0.4 MG/ML INJ IVP PRN (01:50)
[2019-05-27] MEDS ORDERED: Aspirin Enteric Coated 325 MG Tablet PO ONE (01:50)
[2019-05-27] MEDS ORDERED: 0.9 % Sodium Chloride 1,000 ML IVC SCH (02:00)
[2019-05-27 04:25] LABS: Basophils # 0.1 K/mcL (0.0-0.2); Basophils % 0.7 %; Eosinophils % 0.2 %; Hematocrit 45.2 % (37.5-50.1); Hemoglobin 15.7 g/dL (12.9-16.9); Immature Granulocytes % 0.4 % (0-4); Lymphocytes # 1.1 K/mcL (0.6-4.6); Lymphocytes % 11.3 %; Mean Corpuscular HGB Conc 34.7 g/dL (31.6-35.5); Mean Corpuscular Volume 92.2 fL (83.0-100.0); Mean Platelet Volume 11.3 fL (9.4-12.4); Monocytes # 0.7 K/mcL (0.0-1.3); Monocytes % 7.5 %; Neutrophils # 7.8 K/mcL (1.6-8.9); Platelet Count 255 K/mcL (140-400); Red Cell Distribution Width 13.4 % (11.5-14.5); Segmented Neutrophils % 79.9 %; White Blood Count 9.8 K/mcL (4.3-11.1)
[2019-05-27 04:28] LABS: INR 1.1; Prothrombin Time 12.6 Seconds (9.4-12.1)
[2019-05-27 04:47] LABS: Alanine Aminotransferase 13 Units/L (7-52); Albumin 4.4 g/dL (3.5-5.7); Albumin/Globulin Ratio 1.7 (1.1-2.2); Alkaline Phosphatase 67 Units/L (34-104); Aspartate Amino Transferase 17 Units/L (13-39); BUN/Creatinine Ratio 14 (6-26); Bilirubin,Total 0.6 mg/dL (0.3-1.0); Blood Urea Nitrogen 16 mg/dL (6-20); Carbon Dioxide 26 mEq/L (23-29); Chloride 110 mEq/L (98-107); Chol/HDL Ratio 7.3 (0-4.9); Cholesterol 226 mg/dL (< 200); Globulin 2.6 g/dL (2.4-3.5); Glucose 113 mg/dL (70-105); HDL Cholesterol 31 mg/dL (40-59); LDL Cholesterol,Calculated 169 mg/dL (0-99); Magnesium 2.3 mg/dL (1.6-2.6); Osmolality,Calculated 294 (280-300); Phosphorous 2.7 mg/dL (2.7-4.5); Potassium 3.5 mEq/L (3.5-5.1); Sodium 141 mEq/L (136-145); Triglycerides 130 mg/dL (< 150); eGFR For African Americans > 60 (> 60); eGFR For Non-African Americans > 60 (> 60)
[2019-05-27] MEDS: Ondansetron 4 MG/2 ML VIAL IVP PRN ×2 (04:49→19:17)
[2019-05-27] MEDS ORDERED: Isovue-370 500 ML BOTTLE IVP ONE (08:41)
[2019-05-27 08:44] LABS: Estimated Average Glucose 126 mg/dl
[2019-05-27] MEDS: Aspirin Enteric Coated 81 MG Tablet PO SCH (10:43)
[2019-05-27 11:34] LABS: Bilirubin,Urine Negative (Negative); Blood,Urine Negative (Negative); Clarity,Urine Clear (Clear); Color,Urine Yellow (Yellow); Glucose,Urine (UA) Normal (Normal); Ketones,Urine Negative (Negative); Leukocyte Esterase,Urine Negative (Negative); Nitrite,Urine Negative (Negative); Protein,Urine Negative (Neg-Trace); Specific Gravity,Urine 1.017 (1.010-1.025); Urobilinogen,Urine Normal (Normal)
[2019-05-27] MEDS: lisinopriL 20 MG TABLET PO SCH (14:00)
[2019-05-27] MEDS: *HR* Heparin 5,000 UNIT/ML VIAL SQ SCH (17:22)
[2019-05-28] MEDS: *HR* Heparin 5,000 UNIT/ML VIAL SQ SCH (06:03)
[2019-05-28 07:11] VITALS: BP 117/72
[2019-05-28] MEDS: lisinopriL 20 MG TABLET PO SCH (09:49)
[2019-05-28] MEDS: Aspirin Enteric Coated 81 MG Tablet PO SCH (09:49)
== END 2019-05-28 11:16 | disposition home or self-care (01) ==
LOC: 3BNU → SUATTDRO 05-27 00:49
PROVIDERS: ADMIT Family Medicine; ATTEND Internal Medicine